=== PATIENT | male | born 1970 | race Caucasian/White ===

== ENCOUNTER → 2016-04-16 | Outpatient (REF) | payer BC | LOC: M SMT 12:49 | PROVIDERS: ATTEND Nurse Practitioner Women's Health | DX: R10.9 Unspecified abdominal pain (principal) ==

== ENCOUNTER → 2016-04-16 | Outpatient (CLI) | payer BC ==
--- NOTE | 2016-04-16 14:20 | REP ---
CT study of the abdomen pelvis without IV or oral contrast: Renal stone protocol. History: Right flank pain. History of kidney stones. Comparison CT study is from November 24, 2015. CT findings: Preliminary wireless team member radiograph is unremarkable. The lung bases are clear. There is no evidence of pleural effusion or upper abdominal ascites. There is moderate diffuse fatty infiltration of the liver. The pattern is unchanged. Liver and spleen are normal in size. No adrenal lesion is seen. There is a dense calcification in the pancreatic head again noted unchanged from previous studies. No other pancreatic abnormality is observed. The gallbladder is unremarkable. Normal caliber aorta is seen. No retroperitoneal mass or adenopathy is seen. A normal appendix is noted in the right mid abdomen. There is no evidence of hydronephrosis on either side. There is a 2 mm intrarenal calculus at the mid pole level of the right kidney. A tiny 1 mm calculus is suspected in the lower pole of the right kidney. There are two tiny 2 mm calculi in the intrarenal collecting system on the left. No ureteral calculus is observed today. No bladder calculus is seen. There are one or two dystrophic calcifications in the prostate gland. No abdominal wall defect is seen. No bony destructive lesion is appreciated. Mild vascular calcification noted. Impression: 1. Moderate diffuse fatty infiltration of the liver. 2. Bilateral intrarenal nephrolithiasis without hydronephrosis. No ureteral stone. 3. Mild vascular calcification. Signed by Gurvinder Langford MD 04/16/2016 04:26 P
== END ==
LOC: M RAD 11:19
PROVIDERS: ATTEND Nurse Practitioner Women's Health
DX: K76.0 Fatty (change of) liver, not elsewhere classified (principal); Z87.442 Personal history of urinary calculi; N20.0 Calculus of kidney

== ENCOUNTER → 2016-07-21 | Outpatient (REF) | payer BC ==
[2016-07-21 12:30] LABS: ALBUMIN 3.7 GM/DL (3.2-5.2); ALBUMIN/GLOBULIN RATIO 1.03 (1.00-1.93); ALKALINE PHOSPHATASE 88 U/L (45-117); ALT/SGPT 100 U/L (12-78); ANION GAP 8 MEQ/L (8-16); AST/SGOT 61 U/L (15-37); BILIRUBIN,TOTAL 0.6 MG/DL (0.2-1.0); BLOOD UREA NITROGEN 12 MG/DL (7-18); CALCIUM LEVEL 8.7 MG/DL (8.5-10.1); CARBON DIOXIDE LEVEL 24 MEQ/L (21-32); CHLORIDE LEVEL 108 MEQ/L (98-107); CHOLESTEROL LEVEL 146 MG/DL (<200); CREATININE FOR GFR 0.95 MG/DL (0.70-1.30); GLOMERULAR FILTRATION RATE > 60.0 (>60); GLUCOSE, FASTING 96 MG/DL (70-105); POTASSIUM SERUM 4.3 MEQ/L (3.5-5.1); SODIUM LEVEL 140 MEQ/L (136-145); TOTAL PROTEIN 7.3 GM/DL (6.4-8.2); TRIGLYCERIDES LEVEL 177 MG/DL (<150)
== END ==
LOC: M SFHCPLAZ 08:58
PROVIDERS: ATTEND Physician Assistant
DX: K76.0 Fatty (change of) liver, not elsewhere classified (principal); Z13.220 Encounter for screening for lipoid disorders; E55.9 Vitamin D deficiency, unspecified; B18.2 Chronic viral hepatitis C

== ENCOUNTER → 2017-02-03 | Outpatient (REF) | payer BC ==
[2017-02-03 12:14] LABS: ALBUMIN 3.5 GM/DL (3.2-5.2); ALBUMIN/GLOBULIN RATIO 0.88 (1.00-1.93); ALKALINE PHOSPHATASE 122 U/L (45-117); ALT/SGPT 84 U/L (12-78); ANION GAP 8 MEQ/L (8-16); AST/SGOT 58 U/L (7-37); BILIRUBIN,TOTAL 0.6 MG/DL (0.2-1.0); BLOOD UREA NITROGEN 14 MG/DL (7-18); CALCIUM LEVEL 8.7 MG/DL (8.5-10.1); CARBON DIOXIDE LEVEL 24 MEQ/L (21-32); CHLORIDE LEVEL 108 MEQ/L (98-107); CREATININE FOR GFR 0.82 MG/DL (0.70-1.30); GLOMERULAR FILTRATION RATE > 60.0 (>60); GLUCOSE, FASTING 105 MG/DL (70-105); POTASSIUM SERUM 4.2 MEQ/L (3.5-5.1); SODIUM LEVEL 140 MEQ/L (136-145); TOTAL PROTEIN 7.5 GM/DL (6.4-8.2)
== END ==
LOC: M SFHCPLAZ 09:33
DX: B18.2 Chronic viral hepatitis C (principal); J45.909 Unspecified asthma, uncomplicated; E55.9 Vitamin D deficiency, unspecified
CPT/HCPCS: 80053

== ENCOUNTER → 2018-01-13 | Outpatient (REF) | payer BC ==
[2018-01-13 13:07] LABS: ALBUMIN 3.6 GM/DL (3.2-5.2); ALBUMIN/GLOBULIN RATIO 0.86 (1.00-1.93); ALKALINE PHOSPHATASE 95 U/L (45-117); ALT/SGPT 88 U/L (12-78); ANION GAP 8 MEQ/L (8-16); AST/SGOT 56 U/L (7-37); BILIRUBIN,TOTAL 0.6 MG/DL (0.2-1.0); BLOOD UREA NITROGEN 13 MG/DL (7-18); CALCIUM LEVEL 8.4 MG/DL (8.5-10.1); CARBON DIOXIDE LEVEL 24 MEQ/L (21-32); CHLORIDE LEVEL 106 MEQ/L (98-107); CHOLESTEROL LEVEL 176 MG/DL (<200); CHOLESTEROL RISK RATIO 4.888 (<5); CREATININE FOR GFR 0.89 MG/DL (0.70-1.30); GLOMERULAR FILTRATION RATE > 60.0 (>60); GLUCOSE, FASTING 90 MG/DL (70-100); HDL CHOLESTEROL 36 MG/DL (>40); LDL CHOLESTEROL 67 MG/DL (<100); NON-HDL-C 140 MG/DL; POTASSIUM SERUM 4.4 MEQ/L (3.5-5.1); SODIUM LEVEL 138 MEQ/L (136-145); TOTAL 25(OH) VITAMIN D 24.2 NG/ML (30.0-100.0); TOTAL PROTEIN 7.8 GM/DL (6.4-8.2); TRIGLYCERIDES LEVEL 364 MG/DL (<150)
[2018-01-14 10:36] LABS: ALPHA FETOPROTEIN TUMOR QUANT 3.7 NG/ML (<8.1)
== END ==
LOC: M SFHCPLAZ 10:36
DX: B18.2 Chronic viral hepatitis C (principal); E55.9 Vitamin D deficiency, unspecified
CPT/HCPCS: 80053

== ENCOUNTER → 2018-08-16 | Outpatient (REF) | payer BC ==
[2018-08-16 12:43] LABS: HEMATOCRIT 47.4 % (42.0-52.0); HEMOGLOBIN 16.2 g/dl (13.5-17.5); MEAN CORPUSCULAR HEMOGLOBIN 34.9 pg (27.0-33.0); MEAN CORPUSCULAR HGB CONC 34.2 g/dl (32.0-36.5); MEAN CORPUSCULAR VOLUME 102.2 fl (80.0-96.0); RED BLOOD COUNT 4.64 10^6/uL (4.30-6.10); WHITE BLOOD COUNT 6.4 10^3/uL (4.0-10.0)
[2018-08-16 13:06] LABS: PLATELET COUNT, AUTOMATED 81 10^3/uL (150-450)
[2018-08-16 13:45] LABS: ALBUMIN 3.7 GM/DL (3.2-5.2); ALT/SGPT 73 U/L (12-78); BILIRUBIN,TOTAL 0.3 MG/DL (0.2-1.0); BLOOD UREA NITROGEN 11 MG/DL (7-18); CALCIUM LEVEL 8.3 MG/DL (8.5-10.1); CARBON DIOXIDE LEVEL 23 MEQ/L (21-32); CHLORIDE LEVEL 109 MEQ/L (98-107); GLOMERULAR FILTRATION RATE > 60.0 (>60); GLUCOSE, FASTING 104 MG/DL (70-100); SODIUM LEVEL 140 MEQ/L (136-145); TOTAL 25(OH) VITAMIN D 44.4 NG/ML (30.0-100.0); TOTAL PROTEIN 7.8 GM/DL (6.4-8.2)
== END ==
LOC: M SFHCPLAZ 08:38
PROVIDERS: ATTEND Nurse Practitioner Family
DX: K74.60 Unspecified cirrhosis of liver (principal); E55.9 Vitamin D deficiency, unspecified; K76.0 Fatty (change of) liver, not elsewhere classified

== ENCOUNTER → 2019-03-06 | Outpatient (CLI) | payer BC ==
[2019-03-06 12:21] LABS: BASO % 0.6 % (0.0-1.0); EOS # 0.1 10^3/uL (0.0-0.5); EOS % 2.7 % (0.0-3.0); HEMATOCRIT 41.5 % (42.0-52.0); HEMOGLOBIN 14.3 g/dl (13.5-17.5); LYMPH # 1.9 10^3/uL (1.5-5.0); LYMPH % 39.9 % (24.0-44.0); MEAN CORPUSCULAR HGB CONC 34.5 g/dl (32.0-36.5); MEAN CORPUSCULAR VOLUME 98.6 fl (80.0-96.0); MONO # 0.4 10^3/uL (0.0-0.8); MONO % 8.7 % (0.0-5.0); NEUTROPHILS # 2.3 10^3/uL (1.5-8.5); NEUTROPHILS % 47.5 % (36.0-66.0); PLATELET COUNT, AUTOMATED 103 10^3/uL (150-450); RED BLOOD COUNT 4.21 10^6/uL (4.30-6.10); WHITE BLOOD COUNT 4.8 10^3/uL (4.0-10.0)
[2019-03-06 13:10] LABS: ALBUMIN 3.9 GM/DL (3.2-5.2); ALT/SGPT 65 U/L (12-78); BILIRUBIN,TOTAL 0.6 MG/DL (0.2-1.0); BLOOD UREA NITROGEN 13 MG/DL (7-18); CALCIUM LEVEL 8.4 MG/DL (8.5-10.1); CARBON DIOXIDE LEVEL 25 MEQ/L (21-32); CHLORIDE LEVEL 107 MEQ/L (98-107); CHOLESTEROL LEVEL 152 MG/DL (<200); CHOLESTEROL RISK RATIO 3.897 (<5); GLOMERULAR FILTRATION RATE > 60.0 (>60); GLUCOSE, FASTING 88 MG/DL (70-100); HDL CHOLESTEROL 39 MG/DL (>40); LDL CHOLESTEROL 42 MG/DL (<100); NON-HDL-C 113 MG/DL; SODIUM LEVEL 139 MEQ/L (136-145); TOTAL PROTEIN 7.5 GM/DL (6.4-8.2); TRIGLYCERIDES LEVEL 354 MG/DL (<150); URIC ACID 7.8 MG/DL (3.5-7.2)
== END ==
LOC: M LAB 07:24
PROVIDERS: ATTEND Nurse Practitioner Family
DX: Z00.00 Encounter for general adult medical examination without abnormal findings (principal); M10.079 Idiopathic gout, unspecified ankle and foot

== ENCOUNTER → 2019-03-06 | Outpatient (CLI) | payer BC ==
[2019-03-06 12:24] LABS: BASO % 0.6 % (0.0-1.0); EOS # 0.1 10^3/uL (0.0-0.5); EOS % 2.5 % (0.0-3.0); HEMATOCRIT 41.3 % (42.0-52.0); HEMOGLOBIN 14.2 g/dl (13.5-17.5); LYMPH % 41.5 % (24.0-44.0); MEAN CORPUSCULAR HEMOGLOBIN 34.1 pg (27.0-33.0); MEAN CORPUSCULAR HGB CONC 34.4 g/dl (32.0-36.5); MONO # 0.4 10^3/uL (0.0-0.8); MONO % 8.3 % (0.0-5.0); NEUTROPHILS # 2.3 10^3/uL (1.5-8.5); NEUTROPHILS % 46.9 % (36.0-66.0); PLATELET COUNT, AUTOMATED 107 10^3/uL (150-450); RED BLOOD COUNT 4.17 10^6/uL (4.30-6.10); WHITE BLOOD COUNT 4.8 10^3/uL (4.0-10.0)
[2019-03-06 13:01] LABS: ALT/SGPT 64 U/L (12-78); BILIRUBIN,DIRECT 0.2 MG/DL (0.0-0.2); BILIRUBIN,TOTAL 0.6 MG/DL (0.2-1.0); IRON (FE) 135 UG/DL (65-175); PERCENT SATURATION 48.7 % (19.7-50.0); TOTAL IRON BINDING CAPACITY 277 UG/DL (250-450); TOTAL PROTEIN 7.5 GM/DL (6.4-8.2)
[2019-03-06 13:14] LABS: HEPATITIS B SURFACE ANTIGEN NEGATIVE (NEGATIVE)
[2019-03-06 13:42] LABS: HEPATITIS B CORE ANTIBODY IGM NEGATIVE (NEGATIVE)
[2019-03-06 13:44] LABS: HEPATITIS A ANTIBODY IGM NEGATIVE (NEGATIVE)
[2019-03-06 14:20] LABS: HEPATITIS C VIRUS ABY INDEX > 11.0 INDEX (<0.8)
[2019-03-09 00:06] LABS: ANCA-ATYPICAL <1:20 titer (Neg:<1:20); ANTI-MITOCHONDRIAL ANTIBODY <20.0 Units (0.0-20.0); ANTINUCLEAR ANTIBODIES DIRECT Negative (Negative); CERULOPLASMIN 21.9 mg/dL (16.0-31.0); CYTOPLASMIC NEUTROP AB ANCA-C <1:20 titer (Neg:<1:20); PERINUCLEAR AB ANCA-P <1:20 titer (Neg:<1:20)
== END ==
LOC: M LAB 07:30
PROVIDERS: ATTEND Physician Assistant Medical
DX: R94.5 Abnormal results of liver function studies (principal)

== ENCOUNTER → 2019-03-07 | Outpatient (CLI) | payer BC ==
--- NOTE | 2019-03-08 04:10 | REP ---
Clinical: Abnormal liver function tests. Technique: Real time stoddard scale ultrasound examination using curved array transducer. Findings: The liver is increased echogenicity with poor through transmission suggesting fatty infiltration. Fatty sparing noted adjacent to the gallbladder fossa. Pancreas is incompletely evaluated due to interposed bowel gas but visualized portions appear normal. Spleen is enlarged without focal splenic lesion identified (splenic index = 1115). The gallbladder is normal and without gallstones, wall thickening, or pericholecystic fluid. No biliary ductal dilatation is appreciated and the common bile duct measures 3.6 mm diameter. The bilateral kidneys are normal in reniform shape without hydronephrosis. Right kidney measures 12.5 x 4.6 x 4.7 cm. Left kidney measures 12.9 x 4.2 x 5.3 cm. Visualized portions of the abdominal aorta are unremarkable and measure up to 1.8 cm diameter. No ascites. Impression: 1. Hepatic steatosis. No focal hepatic lesion identified. 2. Splenomegaly. No focal splenic lesion identified. Electronically Signed by Adin Clarke MD 03/08/2019 04:02 A
== END ==
LOC: M RAD 09:13
PROVIDERS: ATTEND Physician Assistant Medical
DX: K76.0 Fatty (change of) liver, not elsewhere classified (principal); R16.1 Splenomegaly, not elsewhere classified; R94.5 Abnormal results of liver function studies

== ENCOUNTER → 2019-03-22 | Outpatient (REF) | payer BC ==
[~2019-03-22] MED LIST: ALLO100T PO; BREO1INH INH; CETI5SOL3 PO; DYMI137S; OMEP40CA97 PO; PSEU30TA88 PO; SING10TA32 PO; VITA200015 PO
[2019-03-22 15:27] LABS: INFLUENZA A AMPLIFICATION POSITIVE (NEGATIVE); INFLUENZA B AMPLIFICATION NEGATIVE (NEGATIVE)
== END ==
LOC: M LAB REF 11:29
PROVIDERS: ATTEND Physician Assistant
DX: J11.1 Influenza due to unidentified influenza virus with other respiratory manifestations (principal)

== ENCOUNTER 2019-04-04 12:40 | Day surgery (SDC) | payer BC ==
[~2019-04-04] VITALS: Ht 170.2 cm; Wt 88.8 kg
[2019-04-04] MEDS ORDERED: fentaNYL 100 MCG/2 ML INJECTION (J3010) As Ordered ONE (15:31)
[2019-04-04] MEDS ORDERED: propofoL 200 MG/20 ML VIAL As Ordered ONE ×2 (15:31→15:38)
[2019-04-04] MEDS ORDERED: LIDOCAINE 2% INJ 100 MG/5 ML SDV (FOR ANES.) As Ordered ONE (15:31)
--- NOTE | 2019-04-04 15:57 | ROOR ---
Patient Name: Russ Elaine Procedure Date: 04/04/2019 3:28 PM Date of : 1970 Age: 48 Room: [facility] Gender: Male Note Status: Finalized Procedure: Upper GI endoscopy Indications: Surveillance for malignancy due to personal history of Cuenca's esophagus Providers: Carlos Manuel FISH MD Referring MD: Sherie Valles MD Requesting Provider: Medicines: Monitored Anesthesia Care Complications: No immediate complications. Procedure: Pre-Anesthesia Assessment: - The heart rate, respiratory rate, oxygen saturations, blood pressure, adequacy of pulmonary ventilation, and response to care were monitored throughout the procedure. The Endoscope was introduced through the mouth, and advanced to the second part of duodenum. The upper GI endoscopy was accomplished without difficulty. The patient tolerated the procedure well. Findings: There were esophageal mucosal changes consistent with short-segment Cuenca's esophagus present in the lower third of the esophagus. The maximum longitudinal extent of these mucosal changes was 2 cm in length. Mucosa was biopsied with a cold forceps for histology. One specimen bottle was sent to pathology. One benign-appearing, intrinsic mild (non-circumferential scarring) stenosis was found at the gastroesophageal junction. This stenosis measured less than one cm (in length). A TTS dilator was passed through the scope. Dilation with an 18-19-20 mm balloon dilator was performed to 20 mm. The dilation site was examined and showed complete resolution of luminal narrowing. A small hiatal hernia was present. Mild inflammation characterized by congestion (edema) and erythema was found in the gastric antrum. Biopsies were taken with a cold forceps for histology. The examined duodenum was normal. Impression: - Esophageal mucosal changes consistent with short-segment Cuenca's esophagus. Biopsied. - Benign-appearing esophageal stenosis. Dilated. - Small hiatal hernia. - Gastritis. Biopsied. - Normal examined duodenum. Recommendation: - Use Prilosec (omeprazole) 40 mg twice a day indefinitely. - Await pathology results. - Repeat upper endoscopy in 3 years for surveillance based on pathology results. - ADD: You have signs of liver disease. You need to stop drinking alcohol completely. Carlos Manuel Fish MD Carlos Manuel FISH MD 04/04/2019 3:57:01 PM Electronically signed by Carlos Manuel FISH MD Number of Addenda: 0 Note Initiated On: 04/04/2019 3:28 PM Estimated Blood Loss: Estimated blood loss: none.
[2019-04-04 16:22] VITALS: BP 140/87
[2019-04-05] MEDS ORDERED: NS 1,000 ML IV ONE (07:00)
== END 2019-04-04 16:24 | disposition home or self-care (01) ==
LOC: M OPP 12:40
PROVIDERS: ATTEND Internal Medicine Gastroenterology
DX: K22.2 Esophageal obstruction (principal); K44.9 Diaphragmatic hernia without obstruction or gangrene; K29.70 Gastritis, unspecified, without bleeding; K22.70 Barrett's esophagus without dysplasia; G47.30 Sleep apnea, unspecified; Z79.899 Other long term (current) drug therapy; Z87.891 Personal history of nicotine dependence
CPT/HCPCS: 43239; 43249; 88305; J3010

== ENCOUNTER → 2020-01-17 | Outpatient (CLI) | payer SELFPAY | LOC: M LABSMTC 14:00 | PROVIDERS: ATTEND Pediatrics | DX: Z11.59 Encounter for screening for other viral diseases (principal) ==

== ENCOUNTER → 2020-04-04 | Outpatient (CLI) | payer BC ==
[2020-04-04 08:10] LABS: BASO % 0.5 % (0.0-1.0); EOS # 0.2 10^3/uL (0.0-0.5); EOS % 3.1 % (0.0-3.0); HEMATOCRIT 41.6 % (42.0-52.0); HEMOGLOBIN 14.5 g/dl (13.5-17.5); LYMPH # 2.7 10^3/uL (1.5-5.0); LYMPH % 46.4 % (24.0-44.0); MEAN CORPUSCULAR HEMOGLOBIN 34.5 pg (27.0-33.0); MEAN CORPUSCULAR HGB CONC 34.9 g/dl (32.0-36.5); MONO # 0.5 10^3/uL (0.0-0.8); MONO % 8.4 % (2.0-8.0); NEUTROPHILS # 2.4 10^3/uL (1.5-8.5); NEUTROPHILS % 41.3 % (36.0-66.0); PLATELET COUNT, AUTOMATED 117 10^3/uL (150-450); WHITE BLOOD COUNT 5.8 10^3/uL (4.0-10.0)
[2020-04-04 08:43] LABS: ALT/SGPT 79 U/L (12-78); BILIRUBIN,TOTAL 0.3 MG/DL (0.2-1.0); BLOOD UREA NITROGEN 14 MG/DL (7-18); CALCIUM LEVEL 9.2 MG/DL (8.5-10.1); CARBON DIOXIDE LEVEL 26 MEQ/L (21-32); CHLORIDE LEVEL 108 MEQ/L (98-107); CHOLESTEROL LEVEL 201 MG/DL (<200); CHOLESTEROL RISK RATIO 4.674 (<5); CREATININE FOR GFR 0.86 MG/DL (0.70-1.30); GLOMERULAR FILTRATION RATE > 60.0 (>60); GLUCOSE, FASTING 114 MG/DL (70-100); HDL CHOLESTEROL 43 MG/DL (>40); NON-HDL-C 158 MG/DL; POTASSIUM SERUM 3.9 MEQ/L (3.5-5.1); SODIUM LEVEL 139 MEQ/L (136-145); TOTAL PROTEIN 7.6 GM/DL (6.4-8.2); TRIGLYCERIDES LEVEL 413 MG/DL (<150); URIC ACID 7.5 MG/DL (3.5-7.2)
== END ==
LOC: M LAB 07:06
PROVIDERS: ATTEND Nurse Practitioner Family
DX: K74.69 Other cirrhosis of liver (principal)

== ENCOUNTER → 2020-04-24 | Outpatient (CLI) | payer BC ==
--- NOTE | 2020-04-24 09:36 | REP ---
INDICATION: ABN LFTS COMPARISON: 03/07/2019 TECHNIQUE: Real time stoddard scale ultrasound examination using curved array transducer. FINDINGS: Liver is hyperechoic with decreased through transmission suggesting fatty infiltration. No focal hepatic lesion identified. Findings essentially unchanged. Pancreas is incompletely evaluated due to interposed bowel gas but visualized portions appear normal. Gallbladder is normal and without gallstones, wall thickening, or pericholecystic fluid. No biliary ductal dilatation is appreciated and the common bile duct measures 2.8 mm diameter. The right kidney is normal in reniform shape in appearance measuring 12.2 x 4.7 x 5.3 cm. No ascites in the visualized right upper quadrant. IMPRESSION: 1. Hepatosteatosis. 2. Otherwise normal right upper quadrant/liver ultrasound <Electronically signed by Adin Clarke > 04/24/20 [id number]
== END ==
LOC: M RAD 08:43
PROVIDERS: ATTEND Physician Assistant Medical
DX: R94.5 Abnormal results of liver function studies (principal)

== ENCOUNTER 2020-07-24 05:43 | Emergency (ER) | payer BC ==
[~2020-07-24] VITALS: Ht 170.2 cm; Wt 84.4 kg
[~2020-07-24 05:43] MED LIST changes: +OMEP40CA4 PO; -OMEP40CA97 PO
[2020-07-24] MEDS ORDERED: NS 1,000 ML IV ONE (06:10)
[2020-07-24] MEDS ORDERED: KETOROLAC 30 MG/ML 1ML VIAL IV ONE (06:10)
[2020-07-24 06:25] LABS: HEMATOCRIT 47.2 % (42.0-52.0); HEMOGLOBIN 15.9 g/dl (13.5-17.5); MEAN CORPUSCULAR HEMOGLOBIN 37.1 pg (27.0-33.0); MEAN CORPUSCULAR HGB CONC 33.7 g/dl (32.0-36.5); PLATELET COUNT, AUTOMATED 100 10^3/uL (150-450); RED BLOOD COUNT 4.29 10^6/uL (4.30-6.10); WHITE BLOOD COUNT 5.6 10^3/uL (4.0-10.0)
[2020-07-24 06:30] LABS: BLOOD UREA NITROGEN 14 MG/DL (7-18); CALCIUM LEVEL 8.8 MG/DL (8.5-10.1); CARBON DIOXIDE LEVEL 26 MEQ/L (21-32); CHLORIDE LEVEL 110 MEQ/L (98-107); CREATININE FOR GFR 0.89 MG/DL (0.70-1.30); GLOMERULAR FILTRATION RATE > 60.0 (>56); GLUCOSE, FASTING 124 MG/DL (70-100); SODIUM LEVEL 140 MEQ/L (136-145)
--- NOTE | 2020-07-24 07:13 | REPVR ---
PROCEDURE INFORMATION: Exam: CT Abdomen And Pelvis Without Contrast Exam date and time: 07/24/2020 6:06 AM Age: 50 years old Clinical indication: Abdominal pain; Flank; Left; Additional info: Left renal colic TECHNIQUE: Imaging protocol: Computed tomography of the abdomen and pelvis without contrast. Radiation optimization: All CT scans at this facility use at least one of these dose optimization techniques: automated exposure control; mA and/or kV adjustment per patient size (includes targeted exams where dose is matched to clinical indication); or iterative reconstruction. COMPARISON: CT ABD PELVIS W/O CONTRAST 04/16/2016 11:30 AM FINDINGS: Liver: Fatty infiltration of the liver. Gallbladder and bile ducts: Normal. No calcified stones. No ductal dilation. Pancreas: Normal. No ductal dilation. Spleen: Normal. No splenomegaly. Adrenal glands: Normal. No mass. Kidneys and ureters: No right hydronephrosis. Moderate left hydronephrosis. Stone in the left ureterovesicular junction measuring 3 mm. Multiple punctate nonobstructing stones in the kidneys bilaterally. Stomach and bowel: Unremarkable. No obstruction. No mucosal thickening. Appendix: Appendix is normal. Intraperitoneal space: Unremarkable. No free air. No significant fluid collection. Vasculature: Moderate calcified atherosclerotic disease. No aortic aneurysm. Lymph nodes: Unremarkable. No enlarged lymph nodes. Urinary bladder: Unremarkable as visualized. Reproductive: Prostate is normal in size. Bones/joints: Mild degenerative spine. No acute fracture. Soft tissues: Small umbilical hernia containing fat. There is no evidence of strangulation. IMPRESSION: 1. Acute obstructive left uropathy with ureterovesicular junction stone. 2. Other nonobstructing stones in the kidneys bilaterally. 3. Fatty infiltration of the liver. Electronically signed by: Efren Finch On 07/24/2020 07:13:14 AM
[2020-07-24 07:23] LABS: ATYPICAL LYMPH 1 % (0-5); BASOPHILS 1 % (0-1); EOSINOPHILS 4 % (0-3); LYMPHOCYTES 47 % (16-44); MONOCYTES 6 % (0-5); NEUTROPHILS 41 % (28-66); PLATELET ESTIMATE DECREASED (NORMAL); POLYCHROMASIA 1+
[2020-07-24] MEDS ORDERED: KETO10TAB PO (07:48)
[2020-07-24] MEDS ORDERED: ONDA4TAB6 PO (07:48)
[2020-07-24] MEDS ORDERED: FLOM0.4C39 PO (07:48)
[2020-07-24] MEDS ORDERED: HYDR-3713 PO (07:48)
[2020-07-24] MEDS ORDERED: NORCO, ANEXSIA 5/325MG TABLET (HYDROcodone/ACETAMINOPHEN) PO ONE (07:50)
[2020-07-24 08:04] VITALS: BP 151/92
== END 2020-07-24 08:07 | disposition home or self-care (01) ==
LOC: M ED 05:43
DX: N13.1 Hydronephrosis with ureteral stricture, not elsewhere classified (principal); K76.0 Fatty (change of) liver, not elsewhere classified; J45.909 Unspecified asthma, uncomplicated; K21.9 Gastro-esophageal reflux disease without esophagitis; Z79.899 Other long term (current) drug therapy; F17.210 Nicotine dependence, cigarettes, uncomplicated
CPT/HCPCS: 74176; 80048; 81001; 85025; 87088; 87186; 96361; 96374; 99284; J1885

== ENCOUNTER → 2020-11-04 | Outpatient (REF) | payer BC ==
[~2020-11-04] MED LIST changes: +FLOM0.4C39 PO; +HYDR-3713 PO; +KETO10TAB PO; +ONDA4TAB6 PO
== END ==
LOC: M LAB REF 18:17
PROVIDERS: ATTEND Physician Assistant Medical
DX: R94.5 Abnormal results of liver function studies (principal)

== ENCOUNTER 2021-01-12 14:31 | Emergency (ER) | payer BC ==
[~2021-01-12] VITALS: Ht 170.2 cm; Wt 85.1 kg
--- OUTSIDE RECORDS SUMMARY | 2021-01-12 14:37 | CCD | Continuity of Care Document ---
Author Author Russ WILLIAMSON [facility] Organization Unknown Address [address], [address] [place] [address] Phone [phone] Care Team Providers Care Pickling Operator Name Role Phone Sherie Valles M.D. AUTM [phone] Problems Active Problems Provider Date Diaphragmatic hernia Carlos Manuel Fish MD Onset: 05/24/2012 Inflammatory disease of liver Carlos Manuel Fish MD Onset: Disorder of esophagus Carlos Manuel Fish MD Onset: 05/24/2012 Ulcer of esophagus Carlos Manuel Fish MD Onset: 05/24/2012 Viral hepatitis C Carlos Manuel Fish MD Onset: 05/24/2012 High enzyme level in serum Carlos Manuel Fish MD Onset: 2012 Thrombocytopenic disorder Carlos Manuel Fish MD Onset: 013 Gastroesophageal reflux disease Carlos Manuel Fish MD Onset: 0 05/24/2012 Allergic asthma without status asthmaticus Carlos Manuel Fish MD Onset: 11/29/2018 Social History Type Date Description Comments Sex Unknown ETOH Use Has consumed alcohol in the past (Pt considered himself an alcoholic in his 30's-unable to quantify) ETOH Use 6 A Week Tobacco Use Start: Unknown Smokes 1 Pack A Day Tobacco Use Start: Unknown Report Cessation Counseling Was Provided Allergies and adverse reactions Description No Known Drug Allergies Medications Active Medications SIG Qnty Indications Ordering Provide r Date Sutab 7318-826-860ly Tablets take tablets as directed per doctor for bowel prep. 1kit Z12.11 Carlos Manuel mckenzie MD 12/04/[address] take 4 tabs by mouth prior to procedure per instructions. 4tabs Z12.11 Carlos Manuel Fish MD 12/04/[address] 1 by mouth twice a day 60caps 789.06 Carlos Manuel Fish MD 07/05/2014 Dymista 137-50mcg/Act Suspension 1 spray per nostril twice a day Unknown 00 Cetirizine HCL 10mg Tablets 1 by mouth every day Unknown Montelukast Sodium 10mg Tablets 1 by mouth every day Unknown Breo Ellipta 100-25mcg/Inh Aerosol 1 inhalation daily Unknown Pseudoephedrine HCL 30mg Tablets prn Unknown Allopurinol 100mg Tablets 1 by mouth every day Unknown Vitamin D (Cholecalciferol) 25mcg (1000 Ut) Tablets Daily Unknown Immunizations Description No Information Available Vital Signs Date Vital Result Comment 12/04/2020 8:35am BP Systolic 158 mmHg BP Diastolic 88 mmHg Height 67 inches 5'7" Weight 188.00 lb BMI (Body Mass Index) 29.4 kg/m2 [place] Body Weight 148 lb Weight 85.277 kg BSA (Body Surface Area) 1.97 m2 06/05/2020 10:08am BP Systolic 152 mmHg BP Diastolic 86 mmHg Height 67 inches 5'7" Weight 192.00 lb BMI (Body Mass Index) 30.1 kg/m2 [place] Body Weight 148 lb Weight 87.091 kg BSA (Body Surface Area) 1.99 m2 Results Test Acquired Date Facility Test Result H/L Range Note Laboratory test finding 11/04/2020 [facility] Main Lab [address] [place], [place] [id number] [phone] Alpha Fetoprotein Tumor Quant 1.4 NG/ML Normal <8 .1 1, 2 1 THE AFP ASSAY IS PERFORMED O N THE [facility] BY CHEMILUMINESCENCE AND SHOULD NOT BE COMPARED INTERCHANGEABLY WITH OTHER METHODS. IT SHOULD NOT BE USED ALONE A SCREENING TEST OR DIAGNOSIS FOR THE PRESENCE OR ABSENCE OF MALIGNANT DISEASE. THESE RESULTS ARE NOT INTERPRETABLE IN FEMALES. PREDICTIONS OF DISEASE RECURRENCE SHOULD NOT BE BASED SOLELY ON VALUES OBTAINED FROM SERIAL PATIENT SERUM VALUES. 2 11/12/20 (WedNov 12) 12:04 P M DIANA WILLIAMSON Normal. Procedures Date Code Description Status 06/05/2020 45608 Office/Outpatient Established Lo w MDM 20-29 Min Completed Medical Devices Description No Information Available Encounters Type Date Location Provider Dx Diagnosis Office Visit 06/05/2020 10:00a [facility] Diana Williamson, JARRETT-C R94.5 Abnormal results of liver fu nction studies K22.70 Cuenca's esophagus without dysplasia R12 Heartburn Assessments Date Code Description Provider 12/04/2020 K22.70 Cuenca's esophagus without dysp lasia Diana Palomareslynette, RPA-C 12/04/2020 R12 Heartburn Diana kolb, RPA-C 12/04/2020 R94.5 Abnormal results of liver functi on studies Diana Williamson, RPA-C 12/04/2020 Z12.11 Encounter for screening for sylvia gnant neoplasm of colon Diana Williamson, RPA-C 06/05/2020 R94.5 Abnormal results of liver functi on studies Diana Williamson, RPA-C 06/05/2020 K22.70 Cuenca's esophagus without dysp lasia Diana Palomareslynette, RPA-C 06/05/2020 R12 Heartburn Diana Lugo kennedi, RPA-C Plan of Treatment 12/04/2020 - Diana PalomaresROGERIO ojedaC* K22.70 Cuenca's esophagus without dysplasia * R12 Heartburn * R94.5 Abnormal results of liver function studies * Z12.11 Encounter for screening for malignant neoplasm of colon * * Comments:* Will arrange for colonoscopy. Reviewed risks and benefits of the procedure, as well as other options, with the patient. Bowel prep procedure was discussed with patient, as well as risks and side effects associated with the bowel prep. Patient verbalized understanding of all of the above and is in agreement to proceed. Patient will seek medical attention for any acute changes. Will monitor. * Follow up:* As scheduled for colonoscopy and then 6 months, sooner if needed (f/u liver and Cuenca's esophagus) Functional Status Description No Information Available Mental Status Description No Information Available Referrals Description No Information Available
--- OUTSIDE RECORDS SUMMARY | 2021-01-12 14:37 | CCD ---
Author Author [facility] Organization [facility] Address Unknown Phone Unavailable Care Team Providers Care Watch Manufacturing Supervisor Name Role Phone Charlebois, A Diana RPA C Unavailable Unavailable Charlebois, A Diana RPA C Unavailable Unavailable Charlebois, A Diana RPA C Unavailable Unavailable Charlebois, A Diana RPA C Unavailable Unavailable Charlebois, A Diana RPA C Unavailable Unavailable Charlebois, A Diana RPA C Unavailable Unavailable Charlebois, A Diana RPA C Unavailable Unavailable Charlebois, A Diana RPA C Unavailable Unavailable Charlebois, A Diana RPA C Unavailable Unavailable Charlebois, A Diana RPA C Unavailable Unavailable Charlebois, A Diana RPA C Unavailable Unavailable Charlebois, A Diana RPA C Unavailable Unavailable Charlebois, A Diana RPA C Unavailable Unavailable Charlebois, A Diana RPA C Unavailable Unavailable Charlebois, A Diana RPA C Unavailable Unavailable Charlebois, A Diana RPA C Unavailable Unavailable Charlebois, A Diana RPA C Unavailable Unavailable Charlebois, A Diana RPA C Unavailable Unavailable Charlebois, A Diana RPA C Unavailable Unavailable Charlebois, A Diana RPA C Unavailable Unavailable Charlebois, A Diana RPA C Unavailable Unavailable Charlebois, A Diana RPA C Unavailable Unavailable Charlebois, A Diana RPA C Unavailable Unavailable Charlebois, A Diana RPA C Unavailable Unavailable Charlebois, A Diana RPA C Unavailable Unavailable Charlebois, A Diana RPA C Unavailable Unavailable Charlebois, A Dinaa RPA C Unavailable Unavailable Charlebois, A Diana RPA C Unavailable Unavailable Charlebois, A Diana RPA C Unavailable Unavailable Charlebois, A Diana RPA C Unavailable Unavailable Charlebois, A Diana RPA C Unavailable Unavailable Charlebois, A Diana RPA C Unavailable Unavailable Charlebois, A Diana RPA C Unavailable Unavailable Pleskach, Yola SITE DIRECTOR Unavailable Unavailable Pleskach, Yola SITE DIRECTOR Unavailable Unavailable Pleskach, Yola SITE DIRECTOR Unavailable Unavailable Pleskach, Yola SITE DIRECTOR Unavailable Unavailable Pleskach, Yola SITE DIRECTOR Unavailable Unavailable Pleskach, Yola SITE DIRECTOR Unavailable Unavailable Pleskach, Yola SITE DIRECTOR Unavailable Unavailable Pleskach, Yola SITE DIRECTOR Unavailable Unavailable Pleskach, Yola SITE DIRECTOR Unavailable Unavailable Pleskach, Yola SITE DIRECTOR Unavailable Unavailable Pleskach, Yola SITE DIRECTOR Unavailable Unavailable Pleskach, Yola SITE DIRECTOR Unavailable Unavailable Pleskach, Yola SITE DIRECTOR Unavailable Unavailable Pleskach, Yola SITE DIRECTOR Unavailable Unavailable Pleskach, Yola SITE DIRECTOR Unavailable Unavailable Pleskach, Yola SITE DIRECTOR Unavailable Unavailable Pleskach, Yola SITE DIRECTOR Unavailable Unavailable Pleskach, Yola SITE DIRECTOR Unavailable Unavailable Pleskach, Yola SITE DIRECTOR Unavailable Unavailable Pleskach, Yola SITE DIRECTOR Unavailable Unavailable Pleskach, Yola SITE DIRECTOR Unavailable Unavailable Pleskach, Yola SITE DIRECTOR Unavailable Unavailable Pleskach, Yola SITE DIRECTOR Unavailable Unavailable Pleskach, Yola SITE DIRECTOR Unavailable Unavailable Pleskach, Yola SITE DIRECTOR Unavailable Unavailable Pleskach, Yola SITE DIRECTOR Unavailable Unavailable Pleskach, Yola SITE DIRECTOR Unavailable Unavailable Pleskach, Yola SITE DIRECTOR Unavailable Unavailable Pleskach, Yola SITE DIRECTOR Unavailable Unavailable Pleskach, Yola SITE DIRECTOR Unavailable Unavailable Pleskach, Yola SITE DIRECTOR Unavailable Unavailable Pleskach, Yola SITE DIRECTOR Unavailable Unavailable Pleskach, Yola SITE DIRECTOR Unavailable Unavailable Pleskach, Yola SITE DIRECTOR Unavailable Unavailable Pleskach, Yola SITE DIRECTOR Unavailable Unavailable Pleskach, Yola SITE DIRECTOR Unavailable Unavailable Pleskach, Yola SITE DIRECTOR Unavailable Unavailable Pleskach, Yola SITE DIRECTOR Unavailable Unavailable Pleskach, Yola SITE DIRECTOR Unavailable Unavailable Pleskach, Yola SITE DIRECTOR Unavailable Unavailable Pleskach, Yola SITE DIRECTOR Unavailable Unavailable Pleskach, Yola SITE DIRECTOR Unavailable Unavailable Pleskach, Yola SITE DIRECTOR Unavailable Unavailable Pleskach, Yola SITE DIRECTOR Unavailable Unavailable Re-disclosure Warning The records that you are about to access may contain information from federally-assisted alcohol or drug abuse programs. If such information is present, then the following federally mandated warning applies: This information has been disclosed to you from records protected by federal confidentiality rules (42 CFR part 2). The federal rules prohibit you from making any further disclosure of this information unless further disclosure is expressly permitted by the written consent of the person to whom it pertains or as otherwise permitted by 42 CFR part 2. A general authorization for the release of medical or other information is NOT sufficient for this purpose. The Federal rules restrict any use of the information to criminally investigate or prosecute any alcohol or drug abuse patient.The records that you are about to access may contain highly sensitive health information, the redisclosure of which is protected by Article 27-F of the [facility] Public Health law. If you continue you may have access to information: Regarding HIV / AIDS; Provided by facilities licensed or operated by the [facility] Office of Mental Health; or Provided by the [facility] Office for People With Developmental Disabilities. If such information is present, then the following [facility] mandated warning applies: This information has been disclosed to you from confidential records which are protected by state law. State law prohibits you from making any further disclosure of this information without the specific written consent of the person to whom it pertains, or as otherwise permitted by law. Any unauthorized further disclosure in violation of state law may result in a fine or residential sentence or both. A general authorization for the release of medical or other information is NOT sufficient authorization for further disc losure. Family History Family Member Name Family Member Gender Family Member Status Date o f Status Description Data Source(s) Unknown Unknown Problem [facility] Unknown Unknown Problem [facility] ([facility] ) Unknown Unknown Problem [facility] ([facility] Unknown Female Encounters Encounter Providers Location Date Indications Data Source(s ) Unknown [address] [facility] [place] [id number] 07/24/2020 12:00:00 AM EDT eCW1 ([facility]) Outpatient Attender: Diana Martinez/Beth/Nicki victoria/Abe 06/05/2020 10:00:00 AM EDT MED[facility] ([facility], [place]) Outpatient Attender: Yola Sexton [facility] Main Office 04/17/2020 0 7:15:00 AM EST [facility] ([facility] Immunizations Vaccine Date Status Description Data Source(s) COVID-19 VACCINE Pfizer 11/20/2020 12:00:00 AM EDT completed [facility] Vaccine Series Complete: YESThis Data wa s Submitted to [facility]. COVID-19 VACCINE Pfizer 02/20/2020 12:00:00 AM EST completed [facility] Vaccine Series Complete: YESThis Data wa s Submitted to [facility]. COVID-19 VACCINE Pfizer 01/30/2020 12:00:00 AM EST completed [facility] Vaccine Series Complete: NOThis Data was Submitted to [facility]. Medications Medication Brand Name Start Date Product Form Dose Route Admi nistrative Instructions Pharmacy Instructions Status Indications Reaction Description Data Source(s) Sutab Sutab 12/04/2020 12:00:00 AM EDT active [facility] ([facility], ) Bisacodyl 5 MG Delayed Release Oral Tablet [Dulcolax] Dulcol ax 12/04/2020 12:00:00 AM EDT ORAL active M EDENT ([facility], ) 500 mg 07/31/2020 12:00:00 AM EDT tablet 14 TAKE ONE TABLET BY MOUTH TWICE A DAY FOR 7 DAYS TAKE ONE TABLET BY MOUTH TWICE A DAY FOR 7 DAYS SOLD: 07/31/2020 [facility] Acetaminophen 325 MG / Hydrocodone Bitartrate 5 MG Ora l Tablet 5-325 mg HYDROCODONE/ACETAMINOPHEN 07/24/2020 12:00:00 AM EDT tablet 12 TAKE ONE TABLET BY MOUTH EVERY 6 HOURS NEEDED FOR PAIN MAXIMUM DAILY DOSE = 4 TABLETS TAKE ONE TABLET BY MOUTH EVERY 6 HOURS NEEDED FOR PAIN MAXIMUM DAILY DOSE = 4 TABLETS SOLD: 07/24/2020 [facility] 0.4 mg 07/24/2020 12:00:00 AM EDT capsule 10 TAKE ONE CAPSULE BY MOUTH EVERY DAY TAKE ONE CAPSULE BY MOUTH EVERY DAY SOLD: 07/24/2020 [facility] 10 mg 07/24/2020 12:00:00 AM EDT tablet 20 TAKE ONE TABLET BY MOUTH EVERY 6 HOURS NEEDED FOR PAIN TAKE ONE TABLET BY MOUTH EVERY 6 HOURS A S NEEDED FOR PAIN SOLD: 07/24/2020 [facility] 4 mg 07/24/2020 12:00:00 AM EDT tablet,disintegrating 1 6 DISSOLVE ONE TABLET ON TONGUE EVERY 6 TO 8 HOURS NEEDED FOR NAUSEA/VOMITING DISSOLVE ONE TABLET ON TONGUE EVERY 6 TO 8 HOURS NEEDED FOR NAUSEA/VOMITING SOLD: 07/24/2020 [facility] Cholecalciferol 08711 UNT Oral Capsule Vitamin D3 12/04/2019 12:0 0:00 AM EDT ORAL completed [facility] ([facility] Insurance Providers Payer name Policy type / Coverage type Policy ID Covered republican ID Covered republican's relationship to ji Policy Ji Plan Information [employer] BCBS Medimineral Part B [id number] BCBS OF [facility] 306/806 [id number] [facility] [id number] [facility] [id number] Self [id number] BCBS [facility] Commercial [id number] Self ANSI-Commercial [id number] ANSI-Commercial [id number] ANSI-Commercial [id number] ANSI-Commercial [id number] ANSI-Commercial [id number] [employer] BCBS Medigap Part B [id number] Self [id number] [employer] BCBS Health Maintenance Organization (HMO) [id number] Self BCBS [place] 302/307 [id number] SP [id number] BCBS/[employer] Commercial [id number] Self BCBS OF [place] 306/806 [id number] [place]BS [place] 302/307 [id number] SP [id number] [employer]BS [place] 302/307 [id number] SP [id number] SELF PAY ONLY [id number] SP [id number] [facility] BCBS B [id number] S [id number] Problems, Conditions, and Diagnoses Code Display Name Description Problem Type Effective Dates Data Source(s) K21.9 Gastroesophageal reflux disease Gastroesophageal reflu x disease Problem 04/17/2020 12:00:00 AM EST [facility] ([facility] J45.30 Mild persistent asthma Mild persistent asthma Problem 04/17/2020 12:00:00 AM EST [facility] ([facility] K75.81 Nonalcoholic steatohepatitis Nonalcoholic steatohepati tis Problem 04/17/2020 12:00:00 AM EST [facility] ([facility] J30.9 Allergic rhinitis Allergic rhinitis Problem 04/17/2020 12:00:00 AM EST [facility] ([facility] M10.079 Gouty arthritis of the ankle and/or foot Gouty arthritis of the ankle and/or foot Problem 04/17/2020 12:00:00 AM EST [facility] ([facility] Surgeries/Procedures Procedure Description Date Indications Data Source(s) OFFICE OUTPATIENT VISIT 15 MINUTES 06/05/2020 12:00:00 AM EDT [facility] ([facility]) OFFICE OUTPATIENT VISIT 15 MINUTES 04/17/2020 12:00:00 AM EST [facility] ([facility] PERIODIC PREVENTIVE MED EST PATIENT 40-64YRS 12:00:00 AM EST [facility] ([facility] Results ID Date Data Source [id number] 11/04/2020 10:23:00 AM EDT MED[facility] ([facility]) Name Value Range Interpretation Code Description Data Sanjana rce(s) Supporting Document(s) Punlw-0-Ekrcgudjzxy [Mass/volume] in Serum or Plasma 1.4 ng/mL Normal (applies to non-numeric results) MED[facility] ([facility]) THE AFP ASSAY IS PERFORMED ON THE [employer] BY CHEMILUMINESCENCE AND SHOULD NOT BE COMPARED INTERCHANGEABLY WITH OTHER METHODS. IT SHOULD NOT BE USED ALONE A SCREENING TEST OR DIAGNOSIS FOR THE PRESENCE OR ABSENCE OF MALIGNANT DISEASE. THESE RESULTS ARE NOT INTERPRETABLE IN FEMALES. PREDICTIONS OF DISEASE RECURRENCE SHOULD NOT BE BASED SOLELY ON VALUES OBTAINED FROM SERIAL PATIENT SERUM VALUES. ID Date Data Source [id number] 07/24/2020 06:10:00 AM EDT [facility] ([facility] Name Value Range Interpretation Code Description Data Sanjana rce(s) Supporting Document(s) Appearance, Urine RFX Laboratory test result [facility] ([facility] Color, Urine RFX Laboratory test result [facility] ([facility] PH,Urine RFX 5.0 units 5.0-9.0 [facility] ([facility] Specific Baring Ur Auto RFX 1.017 1.002-1.035 [facility] ([facility] Protein, Urine Auto RFX Laboratory test result [facility] ([facility] Glucose, Urine (Ua) Auto RFX Laboratory test result [facility] ([facility] Ketone, Urine Auto RFX Laboratory test result [facility] ([facility] Urobilinogen, Urine Auto RFX 0.2 mg/dL 0.0-2.0 [facility] ([facility] Bilirubin, Urine Auto RFX Laboratory test result [facility] ([facility] Nitrite, Urine Auto RFX Laboratory test result [facility] ([facility] Leukocyte Esterase Ur Auto RFX Laboratory test result [facility] ([facility] Blood, Urine Blood RFX Laboratory test result [facility] ([facility] RBC, Urine Auto RFX 3 /HPF 0-3 [facility] ([facility] WBC, Urine Auto RFX 7 /HPF 0-3 [facility] ([facility] Bacteria, Urine Auto RFX Laboratory test result [facility] ([facility] Squam Epithelial Cell Ur Aurfx 0 /HPF 0-6 [facility] ([facility] Hyaline Cast, Urine Auto RFX 0 /LPF 0-1 [facility] ([facility] ID Date Data Source [id number] 07/24/2020 06:10:00 AM EDT [facility] ([facility] Name Value Range Interpretation Code Description Data Sanjana rce(s) Supporting Document(s) Platelets [#/volume] in Blood by Estimate Laboratory test result [facility] ([facility] ID Date Data Source [id number] 07/24/2020 06:10:00 AM EDT [facility] ([facility] Name Value Range Interpretation Code Description Data Sanjana rce(s) Supporting Document(s) Neutrophils 41 % 28-66 [facility] ([facility] Lymphocytes 47 % 16-44 [facility] Monocytes 6 % 0-5 [facility] ([facility] Eosinophils 4 % 0-3 [facility] Basophils 1 % 0-1 [facility] Atypical Lymph 1 % 0-5 [facility] ([facility] Polychromasia Laboratory test result [facility] ([facility] Macrocytosis Laboratory test result [facility] ([facility] ID Date Data Source [id number] 07/24/2020 06:10:00 AM EDT [facility] ([facility] Name Value Range Interpretation Code Description Data [facility](s) Supporting Document(s) White Blood Count 5.6 10 4.0-10.0 [facility] ([facility] Red Blood Count 4.29 10 4.30-6.10 [facility] ([facility] Hemoglobin 15.9 g/dL 13.5-17.5 [facility] ([facility] Hematocrit 47.2 % 42.0-52.0 [facility] ([facility] Mean Corpuscular Volume 110.0 fl 80.0-96.0 M EDENT ([facility] Mean Corpuscular Hemoglobin 37.1 pg 27.0-33.0 [facility] ([facility] Mean Corpuscular HGB Conc 33.7 g/dL 32.0-36.5 [facility] ([facility] Red Cell Distribution Width 10.7 % 11.5-14.5 [facility] ([facility] Platelet Count, Automated 100 10 150-450 [facility] ([facility] Nucleated Red Blood Cell % 0.4 % 0-0 MED E[facility] ([facility] ID Date Data Source [id number] 07/24/2020 06:10:00 AM EDT [facility] ([facility] Name Value Range Interpretation Code Description Data Sanjana rce(s) Supporting Document(s) Glucose, Fasting 124 mg/dL 70-100 [facility] ([facility] Blood Urea Nitrogen 14 mg/dL 7-18 [facility] ([facility] Creatinine For GFR 0.89 mg/dL 0.70-1.30 [facility] ([facility] Glomerular Filtration Rate Laboratory test result [facility] ([facility] <content>Units are mL/min/1.73 m2</content>
<content></content>
<content>Chronic Kidney Disease Staging per NKF:</content>
<content></content>
<content>Stage I & II GFR >=60 Normal to Mildly Decreased</content>
<content>Stage III GFR 30- 59 Moderately Decreased</content>
<content>Stage IV GFR 15-29 Severely Decreased</content>
<content>Stage V GFR <15 Very Little GFR Left</content>
<content>ESRD GFR <15 on FACSIMILE MACHINE OPERATOR</content>
<content></content> Sodium Level 140 meq/L 136-145 [facility] ([facility] Potassium Serum 5.0 meq/L 3.5-5.1 [facility] ([facility] Testing was performed on a SLIGHTLY hemo lyzed specimen. Suggest recollection of specimen for more accurate test results. Chloride Level 110 meq/L 98-107 [facility] ([facility] Carbon Dioxide Level 26 meq/L 21-32 [facility] ([facility] Anion Gap 4 meq/L 8-16 [facility] ([facility] Calcium Level 8.8 mg/dL 8.5-10.1 [facility] ([facility] ID Date Data Source [id number] 07/24/2020 06:10:00 AM EDT [facility] ([facility] Name Value Range Interpretation Code Description Data Sanjana rce(s) Supporting Document(s) Reflex Urine Culture Laboratory test result [facility] ([facility] <content>FULL REPORT IN LAB NOTES (eCW a nd Medent).</content>
<content></content>
<content>ORGANISM 1: STREPTOCOCCUS MITIS</content>
<content></content>
<content>COLONY COUNT 100,000</content>
<content></content>
<content></content>
<content>O RGANISM 1: STREPTOCOCCUS MITIS</content>
<content></content>
<content> STREPTOCOCCUS MITIS: REACTION</content>
<content>TETRACYCLINE PO 250 mg qid >=16 R</content>
<content>PENICILLIN G IV 1 mu q6H 0.12 S</content>
<content>PENICILLIN G IV 1 mu q6h 0.12 S</content>
<content>PENICILLIN G PO 250mg q6h fasting 0.12 S</content>
<content>AMPICILLIN IV 500mg q6h <=0.25 S</content>
<content>AMPICILLIN PO 500mg q6h fasting <=0.25 S</content>
<content>CLINDAMYCIN IV 600mg q6h >=1 R</content>
<content>CLINDAMYCIN PO 150mg q6h >=1 R</content>
<content>LEVOFLOXACIN IV 500mg qd 1 S</content>
<content>LEVOFLOXACIN PO 250mg qd 1 S</content>
<content>LEVOFLOXACIN PO 500mg qd 1 S</content>
<content>VANCOMYCIN IV 500mg q8h <=0.12 S</content>
<content>MOXIFLOXACIN (AVELOX) IV 400MG QD 0.12 S</content>
<content> MOXIFLOXACIN (AVELOX) PO 400MG QD 0.12 S</content>
<content>CEFTRIAXONE IV 1gm q24h <=0.12 S</content>
<content>CEFOTAXIME IV 1gm q8h <=0.12 S</content>
<content></content> ID Date Data Source [id number] 04/04/2020 07:11:00 AM EST [facility] ([facility] Name Value Range Interpretation Code Description Data Sanjana rce(s) Supporting Document(s) Urate [Mass/volume] in Serum or Plasma 7.5 mg/dL 3.5-7.2 [facility] ([facility] ID Date Data Source [id number] 04/04/2020 07:11:00 AM EST [facility] ([facility] Name Value Range Interpretation Code Description Data Sanjana rce(s) Supporting Document(s) Cholesterol Level 201 mg/dL [facility] ([facility] Triglycerides Level 413 mg/dL [facility] ([facility] HDL Cholesterol 43 mg/dL [facility] ([facility] Non-HDL-C 158 mg/dL [facility] ([facility] Cholesterol Risk Ratio 4.674 [facility] ([facility] ID Date Data Source [id number] 04/04/2020 07:11:00 AM EST [facility] ([facility] Name Value Range Interpretation Code Description Data Sanjana rce(s) Supporting Document(s) Creatinine For GFR 0.86 mg/dL 0.70-1.30 [facility] ([facility] Blood Urea Nitrogen 14 mg/dL 7-18 [facility] ([facility] Glucose, Fasting 114 mg/dL 70-100 [facility] ([facility] Sodium Level 139 meq/L 136-145 [facility] ([facility] Glomerular Filtration Rate Laboratory test result [facility] ([facility] <content>Units are mL/min/1.73 m2</content>
<content></content>
<content>Chronic Kidney Disease Staging per NKF:</content>
<content></content>
<content>Stage I & II GFR >=60 Normal to Mildly Decreased</content>
<content>Stage III GFR 30- 59 Moderately Decreased</content>
<content>Stage IV GFR 15-29 Severely Decreased</content>
<content>Stage V GFR <15 Very Little GFR Left</content>
<content>ESRD GFR <15 on FACSIMILE MACHINE OPERATOR</content>
<content></content> Potassium Serum 3.9 meq/L 3.5-5.1 [facility] ([facility] Chloride Level 108 meq/L 98-107 [facility] ([facility] Carbon Dioxide Level 26 meq/L 21-32 [facility] ([facility] Ast/Sgot 41 U/L 7-37 [facility] ([facility] Calcium Level 9.2 mg/dL 8.5-10.1 [facility] ([facility] Anion Gap 5 meq/L 8-16 [facility] ([facility] Alt/SGPT 79 U/L 12-78 [facility] ([facility] Alkaline Phosphatase 83 U/L 45-117 [facility] ([facility] Bilirubin,Total 0.3 mg/dL 0.2-1.0 [facility] ([facility] Total Protein 7.6 GM/DL 6.4-8.2 [facility] ([facility] Albumin 4.0 GM/DL 3.2-5.2 [facility] ([facility] Albumin/Globulin Ratio 1.1 [facility] ([facility] ID Date Data Source [id number] 04/04/2020 07:11:00 AM EST [facility] ([facility] Name Value Range Interpretation Code Description Data Sanjana rce(s) Supporting Document(s) White Blood Count 5.8 10 4.0-10.0 [facility] ([facility] Red Blood Count 4.20 10 4.30-6.10 [facility] ([facility] Hematocrit 41.6 % 42.0-52.0 [facility] ([facility] Hemoglobin 14.5 g/dL 13.5-17.5 [facility] ([facility] Mean Corpuscular Volume 99.0 fl 80.0-96.0 M EDENT ([facility] Mean Corpuscular Hemoglobin 34.5 pg 27.0-33.0 [facility] ([facility] Mean Corpuscular HGB Conc 34.9 g/dL 32.0-36.5 [facility] ([facility] Red Cell Distribution Width 12.3 % 11.5-14.5 [facility] ([facility] Lymph % 46.4 % 24.0-44.0 [facility] ([facility] Neutrophils % 41.3 % 36.0-66.0 [facility] ([facility] Platelet Count, Automated 117 10 150-450 [facility] ([facility] [place] % 8.4 % 2.0-8.0 [facility] ([facility] Eos % 3.1 % 0.0-3.0 [facility] ([facility] Baso % 0.5 % 0.0-1.0 [facility] ([facility] Immature Granulocyte % 0.3 % 0-3.0 [facility] ([facility] Neutrophils # 2.4 10 1.5-8.5 [facility] ([facility] Nucleated Red Blood Cell % 0.0 % 0-0 MED [facility] ([facility] Lymph # 2.7 10 1.5-5.0 [facility] ([facility] [place] # 0.5 10 0.0-0.8 [facility] ([facility] Eos # 0.2 10 0.0-0.5 [facility] ([facility] Baso # 0.0 10 0.0-0.2 [facility] ([facility] ID Date Data Source [id number] 01/17/2020 02:00:00 PM EST [facility] Name Value Range Interpretation Code Description Data Sanjana rce(s) Supporting Document(s) SARS coronavirus 2 RNA [facility] This lab was ordered by [facility] and reported by [facility]. Procedure Social History No Information Vital Signs ID Date Data Source UNK Name Value Range Interpretation Code Description Data Source(s) Systolic blood pressure 158 mm[Hg] 158 mm[Hg] M [facility] ([facility]) Diastolic blood pressure 88 mm[Hg] 88 mm[Hg] [facility] ([facility]) Body height 67 [in_i] 67 [in_i] [facility] ([facility]) 5'7" Body weight 188.00 [lb_av] 188.00 [lb_av] [facility] Body mass index (BMI) [Ratio] 29.4 kg/m2 29.4 k g/m2 [facility] ([facility]) [place] body weight 148 [lb_av] 148 [lb_av] [facility] Body weight 85.277 kg 85.277 kg [facility] ([facility]) Body surface area Derived from formula 1.97 m2 1.97 m2 [facility] ([facility]) Body surface area Derived from formula 1.99 m2 1.99 m2 [facility] ([facility]) Body height 67 [in_i] 67 [in_i] [facility] ([facility]) 5'7" Body weight 192.00 [lb_av] 192.00 [lb_av] [facility] ([facility]) Body mass index (BMI) [Ratio] 30.1 kg/m2 30.1 k g/m2 [facility] ([facility]) [place] body weight 148 [lb_av] 148 [lb_av] [facility] T ([facility]) Body weight 87.091 kg 87.091 kg [facility] ([facility]) Systolic blood pressure 152 mm[Hg] 152 mm[Hg] M EDENT ([facility]) Diastolic blood pressure 86 mm[Hg] 86 mm[Hg] [facility] ([facility]) Body height 67 [in_i] 67 [in_i] [facility] ([facility]) 5'7" Body weight 192.00 [lb_av] 192.00 [lb_av] [facility] ([facility]) Body mass index (BMI) [Ratio] 30.1 kg/m2 30.1 k g/m2 [facility] ([facility]) [place] body weight 148 [lb_av] 148 [lb_av] [facility] ([facility]) Body weight 87.091 kg 87.091 kg [facility] ([facility]) Body surface area Derived from formula 1.99 m2 1.99 m2 [facility] ([facility]) Oxygen saturation in Arterial blood by Pulse oximetry 97 % 97 % [facility] ([facility] [place] body weight 148 [lb_av] 148 [lb_av] [facility] ([facility] Systolic blood pressure 131 mm[Hg] 131 mm[Hg] M [facility] ([facility] Diastolic blood pressure 74 mm[Hg] 74 mm[Hg] [facility] ([facility] Heart rate 74 /min 74 /min [facility] ([facility] Body temperature 98.0 [degF] 98.0 [degF] [facility] ([facility] Respiratory rate 18 /min 18 /min [facility] ( [facility] Body height 67.50 [in_i] 67.50 [in_i] [facility] ([facility] 5'7.50" Body weight 196.12 [lb_av] 196.12 [lb_av] [facility] ([facility] Body mass index (BMI) [Ratio] 30.3 kg/m2 30.3 k g/m2 [facility] ([facility] Body height 67 [in_i] 67 [in_i] [facility] ([facility]) 5'7" Diastolic blood pressure 84 mm[Hg] 84 mm[Hg] [facility] ([facility]) Body weight 197.00 [lb_av] 197.00 [lb_av] [facility] ([facility]) Body mass index (BMI) [Ratio] 30.9 kg/m2 30.9 k g/m2 [facility] [place] body weight 148 [lb_av] 148 [lb_av] [facility] ([facility]) Body weight 89.359 kg 89.359 kg [facility] ([facility]) Body surface area Derived from formula 2.01 m2 2.01 m2 [facility] ([facility]) Systolic blood pressure 160 mm[Hg] 160 mm[Hg] M [facility] ([facility]) Body height 67 [in_i] 67 [in_i] [facility] ([facility]) 5'7" Body weight 197.00 [lb_av] 197.00 [lb_av] [facility] ([facility]) Body mass index (BMI) [Ratio] 30.9 kg/m2 30.9 k g/m2 [facility] ([facility]) [place] body weight 148 [lb_av] 148 [lb_av] [facility] ([facility]) Body weight 89.359 kg 89.359 kg [facility] Body surface area Derived from formula 2.01 m2 2.01 m2 [facility] ([facility])
--- OUTSIDE RECORDS SUMMARY | 2021-01-12 14:37 | CCD | Continuity of Care Document ---
Author Author Russ MAJOR MD Organization Unknown Address [address] [place] [id number] Phone [phone] Care Team Providers Care School Counselor Name Role Phone [facility] M.[facility] [phone] Problems Active Problems Provider Date Diaphragmatic hernia Carlos Manuel Major MD Onset: 05/24/2012 Inflammatory disease of liver Carlos Manuel Major MD Onset: Disorder of esophagus Carlos Manuel Major MD Onset: 05/24/2012 Ulcer of esophagus Carlos Manuel Major MD Onset: 05/24/2012 Viral hepatitis C Carlos Manuel Major MD Onset: 05/24/2012 High enzyme level in serum Carlos Manuel Major MD Onset: 2012 Thrombocytopenic disorder Carlos Manuel Major MD Onset: 013 Gastroesophageal reflux disease Carlos Manuel Major MD Onset: 0 05/24/2012 Allergic asthma without status asthmaticus Carlos Manuel Major MD Onset: 11/29/2018 Social History Type Date [...] SIG Qnty Indications Ordering Provide r Date Omeprazole 40mg Capsules DR 1 by mouth twice a day 60caps 789.06 Carlos Manuel Major MD 07/05/2014 Dymista 137-50mcg/Act Suspension 1 spray per nostril twice a day Unknown Cetirizine HCL 10mg Tablets 1 by mouth every day Unknown Montelukast Sodium 10mg Tablets 1 by mouth every day Unknown Breo Ellipta 100-25mcg/Inh Aerosol 1 inhalation daily Unknown Vitamin D (Ergocalciferol) 1.25mg (82668 Ut) Capsules 1 tab by mouth every week Unknown Pseudoephedrine HCL 30mg Tablets prn Unknown Allopurinol 100mg Tablets 1 by mouth every day Unknown Immunizations Description No Information Available Vital Signs Date Vital Result Comment 06/05/2020 10:08am BP Systolic 152 mmHg BP Diastolic 86 mmHg Height 67 inches 5'7" Weight 192.00 lb BMI (Body Mass Index) 30.1 kg/m2 [place] Body Weight 148 lb Weight 87.091 kg BSA (Body Surface Area) 1.99 m2 11/15/2019 2:28pm BP Systolic 160 mmHg BP Diastolic 84 mmHg Height 67 inches 5'7" Weight 197.00 lb BMI (Body Mass Index) 30.9 kg/m2 [place] Body Weight 148 lb Weight 89.359 kg BSA (Body Surface Area) 2.01 m2 Results Test Acquired Date Facility Test Result H/L Range Note Laboratory test finding 11/04/2020 [facility] [address], [place] [id number] [phone] Alpha Fetoprotein Tumor Quant 1.4 NG/ML Normal [...] Normal. Procedures Date Code Description Status 06/05/2020 70872 Office/Outpatient Established Lo w MDM 20-29 Min Completed Medical Devices Description No Information Available Encounters Type Date Location Provider Dx Diagnosis Office Visit 06/05/2020 10:00a [facility] Diana Williamson, RPA-C R94.5 Abnormal results of liver fu nction studies K22.70 Cuenca's esophagus without dysplasia R12 Heartburn Assessments Date Code Description Provider 06/05/2020 R94.5 Abnormal results of liver functi on studies MIRANDA Li 06/05/2020 K22.70 Cuenca's esophagus without dysp lasia MIRANDA Li 06/05/2020 R12 Heartburn MIRANDA Muñoz Plan of Treatment Future Appointment(s):* 12/04/2020 8:30 am - MIRANDA Li at [facility] 06/05/2020 - MIRANDA Li* R94.5 Abnormal results of liver function studies * K22.70 Cuenca's esophagus without dysplasia * R12 Heartburn * * Comments:* Patient verbalized understanding of above plans and will seek medical attention for any acute changes. Will monitor. * Follow up:* 6 months, sooner if needed (f/u liver and Cuenca's esophagus) Functional Status Description No Information Available Mental Status Description No Information Available Referrals Description No Information Available
[2021-01-12] MEDS ORDERED: NS 1,000 ML IV ONE (14:55)
[2021-01-12] MEDS ORDERED: KETOROLAC 30 MG/ML 1ML VIAL IV ONE (15:20)
[2021-01-12 15:21] LABS: BASO % 0.4 % (0.0-1.0); EOS # 0.1 10^3/uL (0.0-0.5); EOS % 0.9 % (0.0-3.0); HEMATOCRIT 39.8 % (42.0-52.0); HEMOGLOBIN 13.4 g/dl (13.5-17.5); LYMPH # 1.8 10^3/uL (1.5-5.0); LYMPH % 21.8 % (24.0-44.0); MEAN CORPUSCULAR HEMOGLOBIN 36.3 pg (27.0-33.0); MEAN CORPUSCULAR HGB CONC 33.7 g/dl (32.0-36.5); MEAN CORPUSCULAR VOLUME 107.9 fl (80.0-96.0); MONO # 0.8 10^3/uL (0.0-0.8); MONO % 10.2 % (2.0-8.0); NEUTROPHILS # 5.3 10^3/uL (1.5-8.5); NEUTROPHILS % 66.3 % (36.0-66.0); RED BLOOD COUNT 3.69 10^6/uL (4.30-6.10)
[2021-01-12] MEDS ORDERED: ISOVUE-370 76% 100ML VIAL As Ordered ONE (15:25)
[2021-01-12 15:46] LABS: APPEARANCE, URINE CLEAR (CLEAR); BACTERIA, URINE AUTO NEGATIVE (NEGATIVE); BILIRUBIN, URINE AUTO NEGATIVE (NEGATIVE); BLOOD, URINE BLOOD NEGATIVE (NEGATIVE); COLOR, URINE YELLOW (YELLOW); GLUCOSE, URINE (UA) AUTO NEGATIVE (NEGATIVE); KETONE, URINE AUTO NEGATIVE (NEGATIVE); LEUKOCYTE ESTERASE, URINE AUTO NEGATIVE (NEGATIVE); NITRITE, URINE AUTO NEGATIVE (NEGATIVE); PROTEIN, URINE AUTO NEGATIVE (NEGATIVE); RBC, URINE AUTO 0 /HPF (0-3); SQUAMOUS EPITHELIAL CELL UR AU 0 /HPF (0-6); UROBILINOGEN, URINE AUTO 0.2 mg/dL (0.0-2.0); WBC, URINE AUTO 0 /HPF (0-3)
--- OUTSIDE RECORDS SUMMARY | 2021-01-12 15:50 | CCD ---
Author Author [facility] Organization [facility] Address Unknown Phone Unavailable Care Team Providers Care Raw Scales Operator Name Role Phone Charlebois, A Diana RPA [...] Diana RPA C Unavailable Unavailable Pleskach, Yola BALL ENDER Unavailable Unavailable Pleskach, Yola BALL ENDER Unavailable Unavailable Pleskach, Yola BALL ENDER Unavailable Unavailable Pleskach, Yola BALL ENDER Unavailable Unavailable Pleskach, Yola BALL ENDER Unavailable Unavailable Pleskach, Yola BALL ENDER Unavailable Unavailable Pleskach, Yola BALL ENDER Unavailable Unavailable Pleskach, Yola BALL ENDER Unavailable Unavailable Pleskach, Yola BALL ENDER Unavailable Unavailable Pleskach, Yola BALL ENDER Unavailable Unavailable Pleskach, Yola BALL ENDER Unavailable Unavailable Pleskach, Yola BALL ENDER Unavailable Unavailable Pleskach, Yola BALL ENDER Unavailable Unavailable Pleskach, Yola BALL ENDER Unavailable Unavailable Pleskach, Yola BALL ENDER Unavailable Unavailable Pleskach, Yola BALL ENDER Unavailable Unavailable Pleskach, Yola BALL ENDER Unavailable Unavailable Pleskach, Yola BALL ENDER Unavailable Unavailable Pleskach, Yola BALL ENDER Unavailable Unavailable Pleskach, Yola BALL ENDER Unavailable Unavailable Pleskach, Yola BALL ENDER Unavailable Unavailable Pleskach, Yola BALL ENDER Unavailable Unavailable Pleskach, Oyla BALL ENDER Unavailable Unavailable Pleskach, Yola BALL ENDER Unavailable Unavailable Pleskach, Yola BALL ENDER Unavailable Unavailable Pleskach, Yola BALL ENDER Unavailable Unavailable Pleskach, Yola BALL ENDER Unavailable Unavailable Pleskach, Yola BALL ENDER Unavailable Unavailable Pleskach, Yola BALL ENDER Unavailable Unavailable Pleskach, Yola BALL ENDER Unavailable Unavailable Pleskach, Yoal BALL ENDER Unavailable Unavailable Pleskach, Yola BALL ENDER Unavailable Unavailable Pleskach, Yola BALL ENDER Unavailable Unavailable Pleskach, Yola BALL ENDER Unavailable Unavailable Pleskach, Yola BALL ENDER Unavailable Unavailable Pleskach, Yola BALL ENDER Unavailable Unavailable Pleskach, Yola BALL ENDER Unavailable Unavailable Pleskach, Yola BALL ENDER Unavailable Unavailable Pleskach, Yola BALL ENDER Unavailable Unavailable Pleskach, Yola BALL ENDER Unavailable Unavailable Pleskach, Yola BALL ENDER Unavailable Unavailable Pleskach, Yola BALL ENDER Unavailable Unavailable Pleskach, Yola BALL ENDER Unavailable Unavailable Pleskach, Yola BALL ENDER Unavailable Unavailable Re-disclosure Warning The records that [...] is protected by Article 27-F of the [facility] Public Health law. If you continue you may have access to information: Regarding HIV / AIDS; Provided by facilities licensed or operated by the [facility] Office of Mental Health; or Provided by the [facility] Office for People With Developmental Disabilities. If such information is present, then the following [facility] mandated warning applies: This information [...] law may result in a fine or [place] health care facility sentence or both. A general authorization for the release of medical or other information is NOT sufficient authorization for further disc losure. Family History Family Member Name Family Member Gender Family Member Status Date o f Status Description Data Source(s) Unknown Unknown Problem [facility] Unknown Unknown Problem [facility] ([facility] ) Unknown Unknown Problem [facility] ([facility] Unknown Female Encounters Encounter Providers Location Date Indications Data Source(s ) Unknown [address] [facility] [place] [id number] 07/24/2020 12:00:00 AM EDT eCW1 ([facility]) Outpatient Attender: Diana Martinez/Beth/Nicki victoria/Abe 06/05/2020 10:00:00 AM EDT [facility] ([facility] [place]) Outpatient Attender: Yola Sexton [facility] Main Office 04/17/2020 0 7:15:00 AM EST [facility] ([facility] Immunizations Vaccine Date Status Description Data Source(s) COVID-19 VACCINE Pfizer 11/20/2020 12:00:00 AM EDT completed [facility] Vaccine Series Complete: YESThis Data wa s Submitted to [facility] [employer]. COVID-19 VACCINE Pfizer 02/20/2020 12:00:00 AM EST completed [facility] Vaccine Series Complete: YESThis Data wa s Submitted to [facility] [employer]. COVID-19 VACCINE Pfizer 01/30/2020 12:00:00 AM EST completed [facility] Vaccine Series Complete: NOThis Data was Submitted to [facility] [employer]. Medications Medication Brand Name Start Date Product Form Dose Route Admi nistrative Instructions Pharmacy Instructions Status Indications Reaction Description Data Source(s) Sutab Sutab 12/04/2020 12:00:00 AM EDT active [facility] ([facility] ) Bisacodyl 5 MG Delayed Release Oral Tablet [Dulcolax] Dulcol ax 12/04/2020 12:00:00 AM EDT ORAL active M EDENT ([facility], ) 500 mg 07/31/2020 12:00:00 AM EDT [...] FOR NAUSEA/VOMITING SOLD: 07/24/2020 [facility] Cholecalciferol 75791 UNT Oral Capsule Vitamin D3 12/04/2019 12:0 0:00 AM EDT ORAL completed [facility] ([facility] Insurance Providers Payer name Policy type / Coverage type Policy ID Covered alliance party ID Covered alliance party's relationship to ji Policy Ji Plan Information [employer] [place] Part B [id number] BCBS OF [facility] 306/806 [id number] [facility] [id number] [facility] [id number] Self [id number] BCBS [facility] Commercial [id number] Self ANSI-Commercial [id number] ANSI-Commercial [id number] ANSI-Commercial [id number] ANSI-Commercial [id number] ANSI-Commercial [id number] [employer] BCBS Medigap Part B [id number] Self [id number] [employer] BCBS Health Maintenance Organization (HMO) [id number] Self [place]BS [place] 302/307 [id number] SP [id number] BCBS/[employer] Commercial [id number] Self BCBS OF [place] 306/806 [id number] [place]BS [place] 302/307 [id number] SP [id number] BCBS [place] PPO 302/307 [id number] SP [id number] PAY ONLY [id number] SP [id number] [facility] BCBS B [id number] S [id number] Problems, Conditions, and Diagnoses Code Display Name [...] 15 MINUTES 06/05/2020 12:00:00 AM EDT [facility] ([facility]) OFFICE OUTPATIENT VISIT 15 MINUTES 04/17/2020 12:00:00 AM EST [facility] ([facility] PERIODIC PREVENTIVE MED EST PATIENT 40-64YRS 12:00:00 AM EST [facility] ([facility] Results ID Date Data Source [id number] 11/04/2020 10:23:00 AM EDT [facility] ([facility]) Name Value Range Interpretation Code Description Data Sanjana rce(s) Supporting Document(s) Ejfse-7-Jjoejqwkskj [Mass/volume] in Serum or Plasma 1.4 ng/mL Normal (applies to non-numeric results) [facility] ([facility]) THE AFP ASSAY IS PERFORMED ON THE Ushi BY CHEMILUMINESCENCE AND SHOULD NOT BE COMPARED INTERCHANGEABLY WITH OTHER METHODS. IT SHOULD NOT BE USED ALONE A SCREENING TEST OR DIAGNOSIS FOR THE PRESENCE OR ABSENCE OF MALIGNANT DISEASE. THESE RESULTS ARE NOT INTERPRETABLE IN FEMALES. PREDICTIONS OF DISEASE RECURRENCE SHOULD NOT BE BASED SOLELY ON VALUES OBTAINED FROM SERIAL PATIENT SERUM VALUES. ID Date Data Source [id number] 07/24/2020 06:10:00 AM EDT [facility] ([facility] Name Value Range Interpretation Code Description Data Sanjana rce(s) Supporting Document(s) Appearance, Urine RFX Laboratory test result [facility] ([facility] Color, Urine RFX Laboratory test result [facility] ([facility] PH,Urine RFX 5.0 units 5.0-9.0 [facility] ([facility] Specific [place] Ur Auto RFX 1.017 1.002-1.035 [facility] ([facility] [...] [facility] ID Date Data Source [id number] 07/24/2020 06:10:00 AM EDT [facility] ([facility] Name Value Range Interpretation Code Description Data Sanjana rce(s) Supporting Document(s) Platelets [#/volume] in Blood by Estimate Laboratory test result [facility] ([facility] ID Date Data Source [id number] 07/24/2020 06:10:00 AM EDT [facility] ([facility] [...] [facility] ID Date Data Source [id number] 07/24/2020 06:10:00 AM EDT [facility] ([facility] Name Value Range Interpretation Code Description Data [facility](s) Supporting Document(s) White Blood Count 5.6 10 [...] [facility] ID Date Data Source [id number] 07/24/2020 06:10:00 AM EDT [facility] ([facility] [...] Little GFR Left</content>
<content>ESRD GFR <15 on DOOR PULLER</content>
<content></content> Sodium Level 140 meq/L 136-145 MED[facility] [...] [facility] ID Date Data Source [id number] 07/24/2020 06:10:00 AM EDT [facility] ([facility] [...] <=0.12 S</content>
<content></content> ID Date Data Source [id number] 04/04/2020 07:11:00 AM EST [facility] ([facility] Name Value Range Interpretation Code Description Data Sanjana rce(s) Supporting Document(s) Urate [Mass/volume] in Serum or Plasma 7.5 mg/dL 3.5-7.2 [facility] ([facility] ID Date Data Source [id number] 04/04/2020 07:11:00 AM EST [facility] ([facility] [...] [facility] ID Date Data Source [id number] 04/04/2020 07:11:00 AM EST [facility] ([facility] [...] Little GFR Left</content>
<content>ESRD GFR <15 on DOOR PULLER</content>
<content></content> Potassium Serum 3.9 meq/L 3.5-5.1 [facility] [...] [facility] ID Date Data Source [id number] 04/04/2020 07:11:00 AM EST [facility] ([facility] [...] 10 150-450 [facility] ([facility] Rogers % 8.4 % 2.0-8.0 [facility] ([facility] [...] 10 1.5-5.0 [facility] ([facility] Rogers # 0.5 10 0.0-0.8 [facility] ([facility] Eos # 0.2 10 0.0-0.5 [facility] ([facility] Baso # 0.0 10 0.0-0.2 [facility] ([facility] ID Date Data Source [id number] 01/17/2020 02:00:00 PM EST [facility] Name Value Range Interpretation Code Description Data Sanjana rce(s) Supporting Document(s) SARS coronavirus 2 RNA [facility] This lab was ordered by [facility] and reported by [facility]. Procedure Social History No Information Vital Signs ID Date Data Source UNK Name Value Range Interpretation Code Description Data Source(s) Systolic blood pressure 158 mm[Hg] 158 mm[Hg] M EDENT ([facility]) Diastolic blood pressure 88 mm[Hg] 88 mm[Hg] [facility] ([facility]) Body height 67 [in_i] 67 [in_i] [facility] ([facility]) 5'7" Body weight 188.00 [lb_av] 188.00 [facility]av[facility] Body mass index (BMI) [Ratio] 29.4 kg/m2 29.4 k g/m2 [facility] ([facility]) [place] body weight 148 [lb_av] 148 [lb_av] [facility] Body weight 85.277 kg 85.277 kg [facility] ([facility]) Body surface area Derived from formula 1.97 m2 1.97 m2 [facility] ([facility]) Body surface area Derived from formula 1.99 m2 1.99 m2 [facility] ([facility]) Body height 67 [in_i] 67 [in_i] [facility] ([facility]) 5'7" Body weight 192.00 [lb_av] 192.00 [lb_av] [facility] T ([facility]) Body mass index (BMI) [Ratio] 30.1 kg/m2 30.1 k g/m2 [facility] ([facility]) [place] body weight 148 [lb_av] 148 [lb_av] [facility] T ([facility]) Body weight 87.091 kg 87.091 kg [facility]) Systolic blood pressure 152 mm[Hg] 152 mm[Hg] M EDENT ([facility]) Diastolic blood pressure 86 mm[Hg] 86 mm[Hg] [facility] ([facility]) Body height 67 [in_i] 67 [in_i] [facility] ([facility]) 5'7" Body weight 192.00 [lb_av] 192.00 [lb_av] [facility] T ([facility]) Body mass index (BMI) [Ratio] 30.1 kg/m2 30.1 k g/m2 [facility] ([facility]) [place] body weight 148 [lb_av] 148 [lb_av] [facility] T ([facility]) Body weight 87.091 kg 87.091 kg [facility] ([facility]) Body surface area Derived from formula 1.99 m2 1.99 m2 [facility] ([facility]) Oxygen saturation in Arterial blood by Pulse oximetry 97 % 97 % [facility] ([facility] [place] body weight 148 [lb_av] 148 [lb_av] MEDEN [...] Body height 67 [in_i] 67 [in_i] [facility] ([facility]) 5'7" Diastolic blood pressure 84 mm[Hg] 84 mm[Hg] [facility] ([facility]) Body weight 197.00 [lb_av] 197.00 [lb_av] [facility] T ([facility]) Body mass index (BMI) [Ratio] 30.9 kg/m2 30.9 k g/m2 [facility] [place] body weight 148 [lb_av] 148 [lb_av] [facility] T ([facility]) Body weight 89.359 kg 89.359 kg [facility] ([facility]) Body surface area Derived from formula 2.01 m2 2.01 m2 [facility] Body weight 89.359 kg 89.359 kg [facility] ([facility]) Systolic blood pressure 160 mm[Hg] 160 mm[Hg] EDENT ([facility]) Body height 67 [in_i] 67 [in_i] [facility] ([facility]) 5'7" Body weight 197.00 [lb_av] 197.00 [lb_av] MEDEN T ([facility]) Body mass index (BMI) [Ratio] 30.9 kg/m2 30.9 k g/m2 [facility] ([facility]) [place] body weight 148 [lb_av] 148 [lb_av] MEDEN T ([facility]) Body surface area Derived from formula 2.01 m2 2.01 m2 [facility] ([facility])
[2021-01-12 15:55] LABS: PLATELET COUNT, AUTOMATED 89 10^3/uL (150-450)
[2021-01-12 15:59] LABS: ALBUMIN 3.6 GM/DL (3.2-5.2); BILIRUBIN,DIRECT 0.2 MG/DL (0.0-0.2); BILIRUBIN,TOTAL 1.2 MG/DL (0.2-1.0); TOTAL PROTEIN 7.8 GM/DL (6.4-8.2)
--- NOTE | 2021-01-12 16:04 | REP ---
INDICATION: RLQ pain, fever bloated, concern for appendicitis. COMPARISON: None. TECHNIQUE: Imaging protocol: Computed tomography of the abdomen and pelvis without and with IV contrast. Contiguous 3 mm thick axial projection images were obtained through the abdomen and pelvis. 2D sagittal and coronal reconstructions were performed. Radiation optimization: All CT scans at this facility use at least one of these dose optimization techniques: automated exposure control; mA and/or kV adjustment per patient size (includes targeted exams where dose is matched to clinical indication); or iterative reconstruction. Contrast material: ISOVUE 370; Contrast volume: 100 ml; Contrast route: INTRAVENOUS (IV). FINDINGS: Heart and lung bases: The lung bases are clear. There are no pleural effusions. The heart size is normal. There is a minimal pericardial effusion. Liver: There is severe fatty liver infiltration. Gallbladder: Normal. Spleen: There is mild splenomegaly with the spleen measuring 13.8 cm in pole to pole length. Pancreas: Normal. Adrenal glands: Normal. Kidneys/bladder: The kidneys enhance normally. The bladder has a normal unenhanced appearance. Pelvic structures: The prostate gland is normal in size. The seminal vesicles are normal. There is no free fluid the pelvis. There is no pelvic or inguinal lymphadenopathy. There is apparent penile edema. GI tract: There are multiple portions of the colon demonstrating thickening of the submucosal fat. This is nonspecific but is associated with inflammatory bowel disease. There is thickening of the wall of the ascending colon with stranding of the associated pericolonic fat, and thickening of the lateral conal fascia, the right anterior and posterior pararenal fascia, and fluid in the right pericolic gutter. There is a normal appendix demonstrated. Abdominal wall and mesentery: There is a 14 mm in diameter umbilical hernia containing normal fat. There is no mesenteric or retroperitoneal lymphadenopathy. Abdominal aorta and vascular structures: There is calcific vascular disease of the abdominal aorta. The inferior vena cava and portal venous system are normal. Bony structures: There are Schmorl's nodes in multiple vertebral endplates of the lower thoracic and lumbar spine. The SI joints and hips are normal. IMPRESSION: 1. Inflammation of the ascending colon consistent with a nonspecific colitis. 2. Apparent penile edema of uncertain etiology. 3. Severe fatty liver infiltration. 4. Mild splenomegaly. 5. Other findings as noted. <Electronically signed by Dwight Dorado > 01/12/21 9808
[2021-01-12] MEDS ORDERED: KETO10TAB PO (16:45)
[2021-01-12] MEDS ORDERED: METR-265 PO (16:45)
[2021-01-12] MEDS ORDERED: CIPR-249 PO (16:45)
[2021-01-12 17:00] VITALS: BP 159/71
== END 2021-01-12 17:09 | disposition home or self-care (01) ==
LOC: M ED 14:31
DX: K52.9 Noninfective gastroenteritis and colitis, unspecified (principal); K42.9 Umbilical hernia without obstruction or gangrene; J45.909 Unspecified asthma, uncomplicated; B19.20 Unspecified viral hepatitis C without hepatic coma; G47.33 Obstructive sleep apnea (adult) (pediatric); K21.9 Gastro-esophageal reflux disease without esophagitis; M10.9 Gout, unspecified; Z87.442 Personal history of urinary calculi; Z79.899 Other long term (current) drug therapy; F17.210 Nicotine dependence, cigarettes, uncomplicated
CPT/HCPCS: 36415; 74177; 80047; 80076; 81001; 83690; 85025; 85049; 85055; 96361; 96374; 99284; J1885; Q9967

== ENCOUNTER → 2021-01-13 | Outpatient (REF) | payer BC ==
[~2021-01-13] MED LIST changes: +CIPR-249 PO; +METR-265 PO
== END ==
LOC: M LAB REF 11:14
PROVIDERS: ATTEND Physician Assistant Medical
DX: K51.90 Ulcerative colitis, unspecified, without complications (principal)

== ENCOUNTER → 2021-02-22 | Outpatient (CLI) | payer BC | LOC: M LABSMTC 11:00 | PROVIDERS: ATTEND Anesthesiology | DX: Z01.812 Encounter for preprocedural laboratory examination (principal); Z20.822 Contact with and (suspected) exposure to COVID-19 ==

== ENCOUNTER 2021-03-04 08:25 | Emergency (ER) | payer BC ==
[~2021-03-04] VITALS: Ht 170.2 cm; Wt 86.6 kg
[2021-03-04] MEDS ORDERED: diazePAM 5MG TABLET PO ONE (09:35)
[2021-03-04] MEDS ORDERED: ACETAMINOPHEN 325 MG TAB PO ONE (09:35)
[2021-03-04] MEDS ORDERED: HYDR-3713 PO (10:23)
[2021-03-04] MEDS ORDERED: NORCO, ANEXSIA 5/325MG TABLET (HYDROcodone/ACETAMINOPHEN) PO ONE (11:05)
[2021-03-04 11:20] VITALS: BP 159/90
== END 2021-03-04 11:22 | disposition home or self-care (01) ==
LOC: M ED 08:25
DX: S22.32XA Fracture of one rib, left side, initial encounter for closed fracture (principal); W01.0XXA Fall on same level from slipping, tripping and stumbling without subsequent striking against object, initial encounter; Y92.89 Other specified places as the place of occurrence of the external cause; J45.909 Unspecified asthma, uncomplicated; B19.9 Unspecified viral hepatitis without hepatic coma; G47.33 Obstructive sleep apnea (adult) (pediatric); K21.9 Gastro-esophageal reflux disease without esophagitis; Z87.442 Personal history of urinary calculi; Z79.899 Other long term (current) drug therapy; F17.210 Nicotine dependence, cigarettes, uncomplicated

== ENCOUNTER → 2021-05-13 | Outpatient (CLI) | payer BC | LOC: M WHC 07:56 | PROVIDERS: ATTEND Physician Assistant Medical | DX: K76.0 Fatty (change of) liver, not elsewhere classified (principal); N20.0 Calculus of kidney; R94.5 Abnormal results of liver function studies ==

== ENCOUNTER → 2021-05-13 | Outpatient (CLI) | payer BC ==
[2021-05-13 11:58] LABS: BASO % 0.4 % (0.0-1.0); EOS # 0.2 10^3/uL (0.0-0.5); EOS % 2.6 % (0.0-3.0); HEMATOCRIT 42.6 % (42.0-52.0); HEMOGLOBIN 14.9 g/dl (13.5-17.5); LYMPH # 1.6 10^3/uL (1.5-5.0); LYMPH % 27.5 % (24.0-44.0); MEAN CORPUSCULAR HEMOGLOBIN 35.9 pg (27.0-33.0); MEAN CORPUSCULAR VOLUME 102.7 fl (80.0-96.0); MONO # 0.5 10^3/uL (0.0-0.8); MONO % 8.1 % (2.0-8.0); NEUTROPHILS # 3.5 10^3/uL (1.5-8.5); PLATELET COUNT, AUTOMATED 94 10^3/uL (150-450); RED BLOOD COUNT 4.15 10^6/uL (4.30-6.10); WHITE BLOOD COUNT 5.7 10^3/uL (4.0-10.0)
[2021-05-13 12:26] LABS: ALT/SGPT 76 U/L (12-78); BILIRUBIN,TOTAL 0.6 MG/DL (0.2-1.0); BLOOD UREA NITROGEN 10 MG/DL (7-18); CALCIUM LEVEL 9.2 MG/DL (8.5-10.1); CARBON DIOXIDE LEVEL 30 MEQ/L (21-32); CHLORIDE LEVEL 108 MEQ/L (98-107); CHOLESTEROL LEVEL 165 MG/DL (<200); CHOLESTEROL RISK RATIO 3.586 (<5); GLOMERULAR FILTRATION RATE > 60.0 (>56); GLUCOSE, FASTING 102 MG/DL (70-100); HDL CHOLESTEROL 46 MG/DL (>40); LDL CHOLESTEROL 71 MG/DL (<100); NON-HDL-C 119 MG/DL; POTASSIUM SERUM 4.1 MEQ/L (3.5-5.1); SODIUM LEVEL 141 MEQ/L (136-145); TOTAL PROTEIN 7.5 GM/DL (6.4-8.2); TRIGLYCERIDES LEVEL 242 MG/DL (<150); URIC ACID 5.6 MG/DL (3.5-7.2)
== END ==
LOC: M PLALAB 08:45
PROVIDERS: ATTEND Nurse Practitioner Family
DX: M10.079 Idiopathic gout, unspecified ankle and foot (principal); K75.81 Nonalcoholic steatohepatitis (NASH)

== ENCOUNTER → 2021-05-13 | Outpatient (CLI) | payer BC ==
[2021-05-13 12:27] LABS: ALBUMIN 3.9 GM/DL (3.2-5.2); BILIRUBIN,DIRECT 0.2 MG/DL (0.0-0.2); BILIRUBIN,TOTAL 0.6 MG/DL (0.2-1.0); TOTAL PROTEIN 7.6 GM/DL (6.4-8.2)
== END ==
LOC: M PLALAB 08:49
PROVIDERS: ATTEND Physician Assistant Medical
DX: R94.5 Abnormal results of liver function studies (principal)

== ENCOUNTER → 2021-07-08 | Outpatient (CLI) | payer BC ==
[~2021-07-08] MED LIST changes: +ISOVUE-370 76% 100ML VIAL As Ordered ONE
== END ==
LOC: M RAD 07:57
PROVIDERS: ATTEND Otolaryngology
DX: K13.70 Unspecified lesions of oral mucosa (principal); J34.1 Cyst and mucocele of nose and nasal sinus
CPT/HCPCS: 70487; Q9967

== ENCOUNTER → 2021-12-05 | Outpatient (CLI) | payer BC ==
[~2021-12-05] MED LIST changes: -ISOVUE-370 76% 100ML VIAL As Ordered ONE
[2021-12-05 14:53] LABS: HEMATOCRIT 42.9 % (42.0-52.0); HEMOGLOBIN 15.2 g/dl (13.5-17.5); MEAN CORPUSCULAR HGB CONC 35.4 g/dl (32.0-36.5); MEAN CORPUSCULAR VOLUME 101.7 fl (80.0-96.0); RED BLOOD COUNT 4.22 10^6/uL (4.30-6.10); WHITE BLOOD COUNT 4.6 10^3/uL (4.0-10.0)
[2021-12-05 14:59] LABS: PLATELET COUNT, AUTOMATED 79 10^3/uL (150-450)
[2021-12-05 15:34] LABS: ALBUMIN 3.6 GM/DL (3.2-5.2); BILIRUBIN,DIRECT 0.2 MG/DL (0.0-0.2); BILIRUBIN,TOTAL 0.4 MG/DL (0.2-1.0); TOTAL PROTEIN 7.5 GM/DL (6.4-8.2)
== END ==
LOC: M LAB 13:26
PROVIDERS: ATTEND Internal Medicine Gastroenterology
DX: K70.30 Alcoholic cirrhosis of liver without ascites (principal); K76.0 Fatty (change of) liver, not elsewhere classified

== ENCOUNTER → 2022-02-17 | Outpatient (CLI) | payer BC | LOC: M RAD 07:13 | PROVIDERS: ATTEND Physician Assistant Medical | DX: K76.0 Fatty (change of) liver, not elsewhere classified (principal); R16.1 Splenomegaly, not elsewhere classified; K70.30 Alcoholic cirrhosis of liver without ascites ==

== ENCOUNTER → 2022-03-17 | Outpatient (CLI) | payer BC | LOC: M RAD 08:46 | PROVIDERS: ATTEND Nurse Practitioner Family | DX: M25.531 Pain in right wrist (principal) ==

== ENCOUNTER → 2022-04-14 | Outpatient (CLI) | payer BC ==
[~2022-04-14] MED LIST changes: +MONT-5 PO; -SING10TA32 PO
== END ==
LOC: M RAD 07:00
PROVIDERS: ATTEND Nurse Practitioner Family
DX: Z12.2 Encounter for screening for malignant neoplasm of respiratory organs (principal); F17.210 Nicotine dependence, cigarettes, uncomplicated; R91.8 Other nonspecific abnormal finding of lung field

== ENCOUNTER → 2022-05-26 | Outpatient (CLI) | payer BC ==
[2022-05-26 16:02] LABS: ALKALINE PHOSPHATASE 93 U/L (46-116); ALT/SGPT 66 U/L (7.0-40); AST/SGOT 57 U/L (<34); BILIRUBIN,TOTAL 0.6 MG/DL (0.3-1.2); BLOOD UREA NITROGEN 12 MG/DL (9-23); CALCIUM LEVEL 8.9 MG/DL (8.5-10.1); CARBON DIOXIDE LEVEL 28 MMOL/L (20-31); CHLORIDE LEVEL 108 MMOL/L (98-107); CHOLESTEROL LEVEL 156 MG/DL (<200); CHOLESTEROL RISK RATIO 2.62 (<5); CREATININE FOR GFR 0.94 MG/DL (0.70-1.30); GLOMERULAR FILTRATION RATE > 60.0 (>56); GLUCOSE, FASTING 102 MG/DL (60-100); HDL CHOLESTEROL 59.5 MG/DL (>40); LDL CHOLESTEROL 64.9 MG/DL (<100); NON-HDL-C 96.5 MG/DL; POTASSIUM SERUM 4.7 MMOL/L (3.5-5.1); SODIUM LEVEL 142 MMOL/L (136-145); TOTAL PROTEIN 7.1 G/DL (5.7-8.2); TRIGLYCERIDES LEVEL 158 MG/DL (<150)
== END ==
LOC: M PLALAB 12:18
PROVIDERS: ATTEND Nurse Practitioner Family
DX: Z00.00 Encounter for general adult medical examination without abnormal findings (principal)

== ENCOUNTER → 2022-05-26 | Outpatient (CLI) | payer BC ==
[2022-05-26 16:02] LABS: ALBUMIN 3.9 G/DL (3.2-5.2); BILIRUBIN,DIRECT 0.2 MG/DL (<0.4); BILIRUBIN,TOTAL 0.6 MG/DL (0.3-1.2); TOTAL PROTEIN 7.2 G/DL (5.7-8.2)
[2022-05-26 16:05] LABS: HEMOGLOBIN 15.7 g/dl (13.5-17.5); MEAN CORPUSCULAR HEMOGLOBIN 35.5 pg (27.0-33.0); MEAN CORPUSCULAR HGB CONC 34.1 g/dl (32.0-36.5); MEAN CORPUSCULAR VOLUME 104.1 fl (80.0-96.0); RED BLOOD COUNT 4.42 10^6/uL (4.30-6.10); WHITE BLOOD COUNT 5.6 10^3/uL (4.0-10.0)
[2022-05-26 16:17] LABS: PLATELET COUNT, AUTOMATED 85 10^3/uL (150-450)
== END ==
LOC: M PLALAB 12:16
PROVIDERS: ATTEND Physician Assistant Medical
DX: K74.60 Unspecified cirrhosis of liver (principal)

== ENCOUNTER 2022-06-09 12:59 | Day surgery (SDC) | payer BC ==
[~2022-06-09] VITALS: Ht 170.2 cm; Wt 79.4 kg
[~2022-06-09 12:59] MED LIST changes: +ADV250INH INH; +NAPR-885 PO; +NS 1,000 ML IV ONE; +VITA100093 PO
[2022-06-09] MEDS ORDERED: fentaNYL 100 MCG/2 ML INJECTION As Ordered ONE (15:20)
[2022-06-09] MEDS ORDERED: propofoL 200 MG/20 ML VIAL As Ordered ONE (15:38)
[2022-06-09 16:00] VITALS: BP 159/84
== END 2022-06-09 16:05 | disposition home or self-care (01) ==
LOC: M OPP 12:59
PROVIDERS: ATTEND Internal Medicine Gastroenterology
DX: K22.70 Barrett's esophagus without dysplasia (principal); Z87.891 Personal history of nicotine dependence; Z79.51 Long term (current) use of inhaled steroids; Z79.899 Other long term (current) drug therapy
CPT/HCPCS: 43239; 88305; J3010

== ENCOUNTER → 2022-08-19 | Outpatient (CLI) | payer BC ==
[~2022-08-19] MED LIST changes: -NS 1,000 ML IV ONE
== END ==
LOC: M RAD 07:23
PROVIDERS: ATTEND Physician Assistant Medical
DX: K74.60 Unspecified cirrhosis of liver (principal); K76.6 Portal hypertension; R16.1 Splenomegaly, not elsewhere classified

== ENCOUNTER → 2022-10-27 | Outpatient (CLI) | payer BC ==
[2022-10-27 09:17] LABS: ALBUMIN 3.8 G/DL (3.2-5.2); BILIRUBIN,DIRECT 0.2 MG/DL (<0.4); BILIRUBIN,TOTAL 0.7 MG/DL (0.3-1.2); TOTAL PROTEIN 7.2 G/DL (5.7-8.2)
== END ==
LOC: M LAB 08:12
PROVIDERS: ATTEND Nurse Practitioner Family
DX: F10.20 Alcohol dependence, uncomplicated (principal)

== ENCOUNTER → 2023-05-18 | Outpatient (CLI) | payer BC ==
[2023-05-18 14:37] LABS: URIC ACID 4.7 MG/DL (3.7-9.2)
[2023-05-18 14:41] LABS: ALBUMIN 3.9 G/DL (3.2-5.2); ALKALINE PHOSPHATASE 46 U/L (46-116); ALT/SGPT 19 U/L (7.0-40); AST/SGOT 13 U/L (<34); BILIRUBIN,TOTAL 0.5 MG/DL (0.3-1.2); BLOOD UREA NITROGEN 11 MG/DL (9-23); CALCIUM LEVEL 9.1 MG/DL (8.5-10.1); CARBON DIOXIDE LEVEL 27 MMOL/L (20-31); CHLORIDE LEVEL 104 MMOL/L (98-107); CHOLESTEROL LEVEL 152 MG/DL (<200); CREATININE FOR GFR 0.66 MG/DL (0.70-1.30); GLOMERULAR FILTRATION RATE > 60.0 (>56); GLUCOSE, FASTING 90 MG/DL (60-100); HDL CHOLESTEROL 48.9 MG/DL (>40); LDL CHOLESTEROL 78.7 MG/DL (<100); NON-HDL-C 103.1 MG/DL; POTASSIUM SERUM 4.1 MMOL/L (3.5-5.1); SODIUM LEVEL 138 MMOL/L (136-145); TOTAL PROTEIN 6.9 G/DL (5.7-8.2); TRIGLYCERIDES LEVEL 122 MG/DL (<150)
== END ==
LOC: M RAD 12:48
PROVIDERS: ATTEND Nurse Practitioner Family
DX: Z12.2 Encounter for screening for malignant neoplasm of respiratory organs (principal); Z87.891 Personal history of nicotine dependence; R91.1 Solitary pulmonary nodule; J84.10 Pulmonary fibrosis, unspecified; I70.0 Atherosclerosis of aorta; I25.10 Atherosclerotic heart disease of native coronary artery without angina pectoris

== ENCOUNTER → 2023-06-09 | Outpatient (CLI) | payer BC ==
[2023-06-09 14:12] LABS: HEMATOCRIT 36.3 % (42.0-52.0); HEMOGLOBIN 12.9 g/dl (13.5-17.5); MEAN CORPUSCULAR HEMOGLOBIN 34.8 pg (27.0-33.0); MEAN CORPUSCULAR HGB CONC 35.5 g/dl (32.0-36.5); MEAN CORPUSCULAR VOLUME 97.8 fl (80.0-96.0); PLATELET COUNT, AUTOMATED 154 10^3/uL (150-450); RED BLOOD COUNT 3.71 10^6/uL (4.30-6.10); WHITE BLOOD COUNT 10.3 10^3/uL (4.0-10.0)
[2023-06-09 14:23] LABS: INR 0.97; PROTHROMBIN TIME 12.6 SECONDS (12.5-14.5)
== END ==
LOC: M LAB 13:28
PROVIDERS: ATTEND Dentist
DX: K02.9 Dental caries, unspecified (principal)

== ENCOUNTER → 2023-10-26 | Outpatient (CLI) | payer BC ==
[~2023-10-26] MED LIST changes: +ONDA-282 PO; -ONDA4TAB6 PO
[2023-10-26 15:54] LABS: BASO % 0.3 % (0.0-1.0); EOS # 0.2 10^3/uL (0.0-0.5); EOS % 2.1 % (0.0-3.0); HEMATOCRIT 36.7 % (36.0-47.0); LYMPH # 2.4 10^3/uL (1.5-5.0); LYMPH % 26.4 % (24.0-44.0); MEAN CORPUSCULAR HEMOGLOBIN 35.7 pg (27.0-33.0); MEAN CORPUSCULAR HGB CONC 35.4 g/dl (32.0-36.5); MEAN CORPUSCULAR VOLUME 100.8 fl (80.0-96.0); MONO # 0.7 10^3/uL (0.0-0.8); MONO % 7.7 % (2.0-8.0); NEUTROPHILS # 5.6 10^3/uL (1.5-8.5); NEUTROPHILS % 63.1 % (36.0-66.0); PLATELET COUNT, AUTOMATED 132 10^3/uL (150-450); RED BLOOD COUNT 3.64 10^6/uL (4.00-5.40); WHITE BLOOD COUNT 8.9 10^3/uL (4.0-10.0)
[2023-10-26 16:24] LABS: HEMOGLOBIN A1c 4.9 % (4.0-6.0)
[2023-10-26 16:32] LABS: ALBUMIN 3.8 G/DL (3.2-5.2); ALKALINE PHOSPHATASE 52 U/L (46-116); ALT/SGPT 40 U/L (7.0-40); AST/SGOT 21 U/L (<34); BILIRUBIN,TOTAL 0.4 MG/DL (0.3-1.2); BLOOD UREA NITROGEN 13 MG/DL (9-23); CALCIUM LEVEL 9.3 MG/DL (8.5-10.1); CARBON DIOXIDE LEVEL 23 MMOL/L (20-31); CHLORIDE LEVEL 108 MMOL/L (98-107); CREATININE FOR GFR 0.71 MG/DL (0.55-1.30); GLOMERULAR FILTRATION RATE > 60.0 (>51); GLUCOSE, FASTING 72 MG/DL (60-100); SODIUM LEVEL 139 MMOL/L (136-145); TOTAL PROTEIN 7.1 G/DL (5.7-8.2)
== END ==
LOC: M LAB 14:49
PROVIDERS: ATTEND Nurse Practitioner Family
DX: B37.49 Other urogenital candidiasis (principal)

== ENCOUNTER → 2023-11-30 | Outpatient (CLI) | payer BC ==
[2023-11-30 06:57] LABS: HEMATOCRIT 38.7 % (36.0-47.0); HEMOGLOBIN 13.5 g/dl (12.0-15.5); MEAN CORPUSCULAR HEMOGLOBIN 35.5 pg (27.0-33.0); MEAN CORPUSCULAR HGB CONC 34.9 g/dl (32.0-36.5); MEAN CORPUSCULAR VOLUME 101.8 fl (80.0-96.0); PLATELET COUNT, AUTOMATED 142 10^3/uL (150-450); WHITE BLOOD COUNT 9.2 10^3/uL (4.0-10.0)
[2023-11-30 07:26] LABS: ALBUMIN 3.8 G/DL (3.2-5.2); ALKALINE PHOSPHATASE 44 U/L (46-116); ALT/SGPT 32 U/L (7.0-40); AST/SGOT 19 U/L (<34); BILIRUBIN,DIRECT 0.2 MG/DL (<0.4); BILIRUBIN,TOTAL 0.7 MG/DL (0.3-1.2); TOTAL PROTEIN 7.5 G/DL (5.7-8.2)
== END ==
LOC: M RAD 06:30
PROVIDERS: ATTEND Physician Assistant Medical
DX: K74.60 Unspecified cirrhosis of liver (principal); K76.0 Fatty (change of) liver, not elsewhere classified; K76.6 Portal hypertension

== ENCOUNTER → 2024-04-24 | Outpatient (CLI) | payer BC ==
[~2024-04-24] MED LIST changes: -ADV250INH INH; +ADVA1AER9 INH
[2024-04-24 09:16] LABS: HEMATOCRIT 39.2 % (36.0-47.0); HEMOGLOBIN 13.9 g/dl (12.0-15.5); MEAN CORPUSCULAR HGB CONC 35.5 g/dl (32.0-36.5); MEAN CORPUSCULAR VOLUME 98.7 fl (80.0-96.0); PLATELET COUNT, AUTOMATED 151 10^3/uL (150-450); RED BLOOD COUNT 3.97 10^6/uL (4.00-5.40); WHITE BLOOD COUNT 6.8 10^3/uL (4.0-10.0)
[2024-04-24 09:29] LABS: INR 0.97; PROTHROMBIN TIME 13.2 SECONDS (12.5-14.5)
[2024-04-24 09:48] LABS: BLOOD UREA NITROGEN 16 MG/DL (9-23); CARBON DIOXIDE LEVEL 26 MMOL/L (20-31); CHLORIDE LEVEL 105 MMOL/L (98-107); CREATININE FOR GFR 0.67 MG/DL (0.55-1.30); GLOMERULAR FILTRATION RATE > 60.0 (>51); GLUCOSE, FASTING 89 MG/DL (60-100); POTASSIUM SERUM 4.4 MMOL/L (3.5-5.1); SODIUM LEVEL 138 MMOL/L (136-145)
== END ==
LOC: M LAB 08:48
PROVIDERS: ATTEND Plastic Surgery
DX: Z01.818 Encounter for other preprocedural examination (principal)

== ENCOUNTER → 2024-06-13 | Outpatient (CLI) | payer BC ==
[~2024-06-13] MED LIST changes: -FLOM0.4C39 PO; +TAMS-18 PO
== END ==
LOC: M RAD 08:34
PROVIDERS: ATTEND Nurse Practitioner Family
DX: Z12.2 Encounter for screening for malignant neoplasm of respiratory organs (principal); Z87.891 Personal history of nicotine dependence; Z98.82 Breast implant status; I70.0 Atherosclerosis of aorta; I25.10 Atherosclerotic heart disease of native coronary artery without angina pectoris; J98.11 Atelectasis

== ENCOUNTER → 2024-06-20 | Outpatient (CLI) | payer BC | LOC: M WHC 08:51 | PROVIDERS: ATTEND Nurse Practitioner Family | DX: Z12.31 Encounter for screening mammogram for malignant neoplasm of breast (principal) ==

== ENCOUNTER → 2024-06-22 | Outpatient (CLI) | payer BC | LOC: M WHC 10:10 | PROVIDERS: ATTEND Nurse Practitioner Family | DX: R92.8 Other abnormal and inconclusive findings on diagnostic imaging of breast (principal) | CPT/HCPCS: 77065; G0279 ==

== ENCOUNTER → 2024-09-12 | Outpatient (CLI) | payer BC | LOC: M RAD 07:09 | PROVIDERS: ATTEND Physician Assistant Medical | DX: K74.60 Unspecified cirrhosis of liver (principal); K76.0 Fatty (change of) liver, not elsewhere classified ==

== ENCOUNTER → 2024-09-23 | Outpatient (CLI) | payer BC ==
[2024-09-23 12:06] LABS: CHOLESTEROL LEVEL 175.0 MG/DL (<200); CHOLESTEROL RISK RATIO 3.4 (<5); LDL CHOLESTEROL 96.8 MG/DL (<100); NON-HDL-C 123.6 MG/DL; TRIGLYCERIDES LEVEL 134.0 MG/DL (<150)
== END ==
LOC: M LAB 09:05
PROVIDERS: ATTEND Nurse Practitioner Family
DX: E78.2 Mixed hyperlipidemia (principal)

== ENCOUNTER → 2025-01-22 | Outpatient (CLI) | payer BC ==
[2025-01-22 08:11] LABS: BASO # 0.0 10^3/uL (0.0-0.2); BASO % 0.4 % (0.0-1.0); EOS # 0.2 10^3/uL (0.0-0.5); EOS % 2.5 % (0.0-3.0); LYMPH # 2.0 10^3/uL (1.5-5.0); LYMPH % 23.6 % (24.0-44.0); MONO # 0.6 10^3/uL (0.0-0.8); MONO % 7.5 % (2.0-8.0); NEUTROPHILS # 5.5 10^3/uL (1.5-8.5); NEUTROPHILS % 65.6 % (36.0-66.0); PLATELET COUNT, AUTOMATED 161 10^3/uL (150-450)
[2025-01-22 08:41] LABS: ESTIMATED AVERAGE GLUCOSE 114.0 MG/DL (60-110)
[2025-01-22 08:43] LABS: ALT/SGPT 30 U/L (7.0-40); AST/SGOT 23 U/L (<34); CALCIUM LEVEL 8.8 MG/DL (8.5-10.1); CARBON DIOXIDE LEVEL 29 MMOL/L (20-31); CHLORIDE LEVEL 105 MMOL/L (98-107); CREATININE FOR GFR 0.73 MG/DL (0.55-1.30); GLOMERULAR FILTRATION RATE > 90.0 (>51); IRON (FE) 57 UG/DL (50-170); PERCENT SATURATION 24.3 % (13.2-45.0); POTASSIUM SERUM 3.6 MMOL/L (3.5-5.1); SODIUM LEVEL 142 MMOL/L (136-145)
== END ==
LOC: M LAB 07:01
PROVIDERS: ATTEND Nurse Practitioner Family
DX: K76.0 Fatty (change of) liver, not elsewhere classified (principal); K76.6 Portal hypertension